=== PATIENT | female | born 1985 | race Caucasian/White ===

== ENCOUNTER 2022-11-27 11:10 | Emergency (ER) | payer MEDICAID, SELFPAY ==
[2022-11-27 11:13] VITALS: BP 126/76; PULSE 102; RESP 18; TEMP 37; O2SAT 99; BMI 29.3
--- NOTE | 2022-11-27 11:38 | ED_ITS ---
HPI - Abdominal Pain General Chief Complaint: Abdominal Pain Stated Complaint: ABDOMINAL PAIN Time Seen by Provider: 11/27/22 11:31 Source: patient Mode of arrival: walk-in Limitations: no limitations History of Present Illness HPI narrative: 37-year-old female presents for abdominal pain and vaginal bleeding. She states she had a tubal ligation ten years ago. Three days ago she started having her period which was four days early and it's been heavier than typical. She states over the last several months she's been having heavier periods and she was once told that she has uterine fibroids. Related Data Previous Rx's Medication Instructions Recorded acetaminophen 300 mg-codeine 30 mg 1 tab PO Q6H PRN pain #20 tabs 11/27/22 tablet ibuprofen 800 mg tablet 800 mg PO Q8H PRN pain #20 tabs 11/27/22 Allergies Allergy/AdvReac Type Severity Reaction Status Date / Time No Known Drug Allergies Allergy Verified 11/27/22 11:16 Review of Systems ROS Narrative A ten point review of systems is negative except as noted above. Exam Narrative Exam Narrative: Nurses note and vital signs reviewed and patient is not hypoxic. General: The patient appears well and in no apparent distress. Patient is resting comfortably on cart. Skin: Warm, dry, no pallor noted. There is no rash noted. Head: Normocephalic, atraumatic Eye: Normal conjunctiva, no drainage Ears, Nose, Mouth, and Throat: oral mucosa is moist. Nares patent. Cardiovascular: Regular Rate and Rhythm Respiratory: Patient is in no distress, no accessory muscle use, lungs are clear to auscultation, no wheezing, rales or rhonchi Back: non-tender GI: mild tenderness across her lower abdomen without distention Musculoskeletal: The patient has no evidence of calf tenderness, no pitting edema, symmetrical pulses noted bilaterally Neurological: A&O, normal speech Psychiatric: Cooperative Constitutional Vital Signs, click to edit/add: Last Vital Signs Temp 98.6 F 11/27/22 11:13 Pulse 102 H 11/27/22 11:13 Resp 18 11/27/22 11:13 BP 126/76 11/27/22 11:13 Pulse Ox 99 11/27/22 11:13 O2 Del Method Room Air 11/27/22 11:13 Course Vital Signs Vital signs: Vital Signs Temperature 98.6 F 11/27/22 11:13 Pulse Rate 102 H 11/27/22 11:13 Respiratory Rate 18 11/27/22 11:13 Blood Pressure 126/76 11/27/22 11:13 Pulse Oximetry 99 11/27/22 11:13 Oxygen Delivery Method Room Air 11/27/22 11:13 Temperature 98.6 F 11/27/22 11:13 Pulse Rate 102 H 11/27/22 11:13 Respiratory Rate 18 11/27/22 11:13 Blood Pressure 126/76 11/27/22 11:13 Pulse Oximetry 99 11/27/22 11:13 Oxygen Delivery Method Room Air 11/27/22 11:13 MDM - Abdominal Pain MDM Narrative Medical decision making narrative: blood work is nonspecific. She is not anemic or . She is being referred to [facility] for follow-up and was provided pain medication. She seems to be feeling improved. Treatment diagnosis and follow-up were discussed with the patient. Differential Diagnosis Differential diagnosis: Likely abdominal pain, endometriosis, gastroenteritis and other (uterine fibroids) Lab Data Attestation: I reviewed the patient's lab results. Labs: Lab Results 11/27/22 Range/Units 11:57 WBC 5.2 (4.0-11.0) 10^3/uL RBC 4.87 (4.20-5.40) 10^6/uL Hgb 14.4 (12.0-16.0) g/dL Hct 41.7 (36.0-48.0) % MCV 85.6 (81.0-99.0) fL MCH 29.6 (26.7-34.0) pg MCHC 34.5 (29.9-35.2) g/dL RDW 12.8 (11.0-15.0) % Plt Count 274 (150-450) 10^3/uL MPV 9.8 (9.5-13.5) fL Neut % (Auto) 68.7 (43.0-75.0) % Lymph % (Auto) 22.5 (20.5-60.0) % [place] % (Auto) 6.6 (1.7-12.0) % Eos % (Auto) 1.4 (0.9-7.0) % Baso % (Auto) 0.6 (0.2-2.0) % Neut # (Auto) 3.6 (1.4-6.5) 10^3/uL Lymph # (Auto) 1.2 (1.2-3.8) 10^3/uL [place] # (Auto) 0.3 (0.3-0.8) 10^3/uL Eos # (Auto) 0.1 (0.0-0.7) 10^3/uL Baso # (Auto) 0.0 (0.0-0.1) 10^3/uL Abs Immat Gran (auto) 0.01 (0.00-0.03) 10^3/uL Imm/Tot Granulo (auto) 0.2 (0.0-0.5) % Sodium 138 (136-145) mmol/L Potassium 3.5 (3.5-5.1) mmol/L Chloride 103 (98-107) mmol/L Carbon Dioxide 26.6 (21.0-32.0) mmol/L Anion Gap 11.9 BUN 8.0 (7.0-18.0) mg/dL Creatinine 0.79 (0.55-1.02) mg/dL Est GFR ( Amer) >60 (>=60) Est GFR (Non-Af Amer) >60 (>=60) BUN/Creatinine Ratio 10.1 Glucose 104 (74-106) mg/dL Calcium 8.5 (8.5-10.1) mg/dL Serum HCG, Qual Negative (NEGATIVE) Discharge Plan Discharge Chief Complaint: Abdominal Pain Clinical Impression: Dysfunctional uterine bleeding, Abdominal pain Patient Disposition: Home, Self-Care Time of Disposition Decision: 13:08 Condition: Good Mode of Transportation: Private Vehicle Prescriptions / Home Meds: New ibuprofen 800 mg tablet 800 mg PO Q8H PRN (Reason: pain) Qty: 20 0RF acetaminophen-codeine 300-30 mg tablet 1 tab PO Q6H PRN (Reason: pain) Qty: 20 0RF Instructions: Abdominal Pain (ED), Hysterectomy (DC), Myomectomy (DC), Uterine Artery Embolization for Fibroids (DC) Additional Instructions: F/u with Dr Tobar Stand Alone Forms: Portal Instructions Referrals: Physician,Non-Staff, MD [Primary Care Provider] - 1 week
[2022-11-27 12:02] LABS: Basophils Percent Auto 0.6 % (0.2-2.0); Eosinophils Absolute Auto 0.1 10^3/uL (0.0-0.7); Eosinophils Percent Auto 1.4 % (0.9-7.0); Hematocrit 41.7 % (36.0-48.0); Hemoglobin 14.4 g/dL (12.0-16.0); Immature Granulocytes Abs Auto 0.01 10^3/uL (0.00-0.03); Immature Granulocytes Pct Auto 0.2 % (0.0-0.5); Lymphocytes Absolute Auto 1.2 10^3/uL (1.2-3.8); Lymphocytes Percent Auto 22.5 % (20.5-60.0); Mean Corpuscular HGB Conc 34.5 g/dL (29.9-35.2); Mean Corpuscular Hemoglobin 29.6 pg (26.7-34.0); Mean Corpuscular Volume 85.6 fL (81.0-99.0); Mean Platelet Volume 9.8 fL (9.5-13.5); Monocytes Absolute Auto 0.3 10^3/uL (0.3-0.8); Monocytes Percent Auto 6.6 % (1.7-12.0); Neutrophils Absolute Auto 3.6 10^3/uL (1.4-6.5); Neutrophils Percent Auto 68.7 % (43.0-75.0); Platelet Count 274 10^3/uL (150-450); Red Blood Count 4.87 10^6/uL (4.20-5.40); Red Cell Distribution Width 12.8 % (11.0-15.0); White Blood Count 5.2 10^3/uL (4.0-11.0)
[2022-11-27 12:17] LABS: Anion Gap 11.9; BUN Creatinine Ratio 10.1; Calcium 8.5 mg/dL (8.5-10.1); Carbon Dioxide 26.6 mmol/L (21.0-32.0); Chloride 103 mmol/L (98-107); Estimated GFR (African America >60 (>=60); Estimated GFR (Non-African Ame >60 (>=60); Glucose 104 mg/dL (74-106); Potassium 3.5 mmol/L (3.5-5.1); Sodium 138 mmol/L (136-145)
[2022-11-27] MEDS: KETOROLAC TROMETHAMINE 30 MG/ML VIAL IVP (12:27)
[2022-11-27] MEDS: 0.9 % SODIUM CHLORIDE 1,000 ML 1000 ML IV (12:27)
[2022-11-27 13:04] LABS: HCG Qualitative NEGATIVE (NEGATIVE)
[2022-11-27 13:35] VITALS: BP 122/76; PULSE 89; RESP 16; O2SAT 98
== END 2022-11-27 13:40 | disposition home or self-care (01) ==
PROVIDERS: Emergency Provider Emergency Medicine
DX: R10.9 Unspecified abdominal pain (principal); N93.8 Other specified abnormal uterine and vaginal bleeding
CPT/HCPCS: 36415; 80048; 84703; 85025; 96374; 99284

== ENCOUNTER 2023-05-18 03:17 | Emergency (ER) | payer OTHER, SELFPAY ==
[2023-05-18 03:19] VITALS: BP 112/71; PULSE 76; RESP 20; TEMP 36.6; O2SAT 100; BMI 28.8
--- NOTE | 2023-05-18 03:38 | ED_ITS ---
HPI - Abdominal Pain General Chief Complaint: Abdominal Pain Stated Complaint: ABD PAIN Time Seen by Provider: 05/18/23 03:23 Source: patient Mode of arrival: walk-in History of Present Illness HPI narrative: presents complaining of diarrhea. Describes crampy pain when she has diarrhea. Ongoing for past 4 hours. No vomiting. Denies passing blood Related Data Previous Rx's Medication Instructions Recorded acetaminophen 300 mg-codeine 30 mg 1 tab PO Q6H PRN pain #20 tabs 11/27/22 tablet ibuprofen 800 mg tablet 800 mg PO Q8H PRN pain #20 tabs 11/27/22 Allergies Allergy/AdvReac Type Severity Reaction Status Date / Time No Known Drug Allergies Allergy Verified 11/27/22 11:16 Review of Systems ROS Status of ROS 10 or more systems reviewed and unremark able except as noted in history and below Exam Constitutional Vital Signs, click to edit/add: Last Vital Signs Temp 97.8 F 05/18/23 03:19 Pulse 76 05/18/23 03:19 Resp 20 05/18/23 03:19 BP 112/71 05/18/23 03:19 Pulse Ox 100 05/18/23 03:19 O2 Del Method Room Air 05/18/23 03:19 Common normals: no apparent distress, average body habitus, oriented x3, no limitations, healthy appearing, alert and well nourished Eye Common normals: PERRL, EOMs intact bilaterally and conjunctivae normal Respiratory Common normals: normal respiratory effort, no retractions, no use of accessory muscles and clear to auscultation bilaterally Cardio Common normals: regular rate, regular rhythm, S1 normal heart sound and S2 normal heart sound GI Common normals: Normal to inspection, nondistended, normoactive bowel sounds present, soft to palpation and non-tender Extremity Common normals: normal to inspection and full ROM Neuro Common normals: oriented x3, CN's II-XII intact bilaterally, moves all extremities and no focal motor deficits Psych Appearance: grossly normal Course Vital Signs Vital signs: Vital Signs Temperature 97.8 F 05/18/23 03:19 Pulse Rate 76 05/18/23 03:19 Respiratory Rate 20 05/18/23 03:19 Blood Pressure 112/71 05/18/23 03:19 Pulse Oximetry 100 05/18/23 03:19 Oxygen Delivery Method Room Air 05/18/23 03:19 Temperature 97.8 F 05/18/23 03:19 Pulse Rate 76 05/18/23 03:19 Respiratory Rate 20 05/18/23 03:19 Blood Pressure 112/71 05/18/23 03:19 Pulse Oximetry 100 05/18/23 03:19 Oxygen Delivery Method Room Air 05/18/23 03:19 MDM - Abdominal Pain MDM Narrative Medical decision making narrative: patient presents with rectal pain and diarrhea. CT with infectious/inflammatory proctocolitis. Patient treated with cipro, IV hydration and bentyl before discharge. C. diff neg. Lab Data Labs: Lab Results 05/18/23 05/18/23 Range/Units 03:30 03:50 WBC 7.4 (4.0-11.0) 10^3/uL RBC 4.76 (4.20-5.40) 10^6/uL Hgb 14.2 (12.0-16.0) g/dL Hct 41.8 (36.0-48.0) % MCV 87.8 (81.0-99.0) fL MCH 29.8 (26.7-34.0) pg MCHC 34.0 (29.9-35.2) g/dL RDW 12.9 (11.0-15.0) % Plt Count 252 (150-450) 10^3/uL MPV 10.2 (9.5-13.5) fL Neut % (Auto) 63.1 (43.0-75.0) % Lymph % (Auto) 27.9 (20.5-60.0) % [place] % (Auto) 6.2 (1.7-12.0) % Eos % (Auto) 2.2 (0.9-7.0) % Baso % (Auto) 0.3 (0.2-2.0) % Neut # (Auto) 4.7 (1.4-6.5) 10^3/uL Lymph # (Auto) 2.1 (1.2-3.8) 10^3/uL [place] # (Auto) 0.5 (0.3-0.8) 10^3/uL Eos # (Auto) 0.2 (0.0-0.7) 10^3/uL Baso # (Auto) 0.0 (0.0-0.1) 10^3/uL Abs Immat Gran (auto) 0.02 (0.00-0.03) 10^3/uL Imm/Tot Granulo (auto) 0.3 (0.0-0.5) % Sodium 140 (136-145) mmol/L Potassium 3.5 (3.5-5.1) mmol/L Chloride 106 (98-107) mmol/L Carbon Dioxide 24.1 (21.0-32.0) mmol/L Anion Gap 13.4 BUN 13.0 (7.0-18.0) mg/dL Creatinine 0.82 (0.55-1.02) mg/dL Est GFR ( Amer) >60 (>=60) Est GFR (Non-Af Amer) >60 (>=60) BUN/Creatinine Ratio 15.9 Glucose 93 (74-106) mg/dL Calcium 8.4 L (8.5-10.1) mg/dL Stl C. cayetanensis PCR Not detected (NOT DETECTE) Stool Rotavirus (PCR) Not detected (NOT DETECTE) Stool Adenovirus (PCR) Not detected (NOT DETECTE) Stool Astrovirus (PCR) Not detected (NOT DETECTE) Stool Campylobacter PCR Not detected (NOT DETECTE) Stool Cryptosporidium PCR Not detected (NOT DETECTE) St Sh/Enteroin Ecoli PCR Not detected (NOT DETECTE) Stl Enterotoxigenic E PCR Not detected (NOT DETECTE) Stool EPEC (PCR) Not detected (NOT DETECTE) Stl E. histolytica PCR Not detected (NOT DETECTE) Stool Giardia Lamblia PCR Not detected (NOT DETECTE) Stl P. shigelloides PCR Not detected (NOT DETECTE) Stool Salmonella PCR Not detected (NOT DETECTE) Stool Sapovirus (PCR) Not detected (NOT DETECTE) Stl Shiga-like Tx 1 PCR Not detected (NOT DETECTE) St Y.enterocolitica PCR Not detected (NOT DETECTE) Stl Vibrio cholerae PCR Not detected (NOT DETECTE) Stl Enteroaggr Ecoli PCR Not detected (NOT DETECTE) Stl Norovirus GI/GII PCR Not detected (NOT DETECTE) C. difficile Toxin A&B Not detected (NOT DETECTE) Vibrio Culture Not detected (NOT DETECTE) Imaging Data Abdominal x-ray: Radiologist's impression: ITS Impressions Abdomen/Pelvis CT 05/18/23 03:40 IMPRESSION: 1. Infectious/inflammatory proctocolitis involving the distal descending and rectosigmoid colon. No additional acute findings in the abdomen or pelvis. 2. Cholecystectomy. 3. Bilateral pelvic varices, left greater than right, nonspecific. These can be a normal variant, or be indicative of pelvic venous insufficiency/pelvic congestion syndrome. Electronically authenticated by: SHE MACIAS Date: 05/18/2023 04:36 Discharge Plan Discharge Chief Complaint: Abdominal Pain Clinical Impression: Proctocolitis Patient Disposition: Home, Self-Care Time of Disposition Decision: 06:55 Condition: Good Mode of Transportation: Private Vehicle Prescriptions / Home Meds: No Action ibuprofen 800 mg tablet 800 mg PO Q8H PRN (Reason: pain) Qty: 20 0RF acetaminophen-codeine 300-30 mg tablet 1 tab PO Q6H PRN (Reason: pain) Qty: 20 0RF Instructions: Acute Diarrhea (ED) Stand Alone Forms: Portal Instructions Referrals: Physician,Non-Staff, MD [Primary Care Provider] - 1 week Discharge Date/Time: 05/18/23 06:58
--- NOTE | 2023-05-18 03:40 | CT_ITS ---
The [address] [address] Patient Name: ROLY CHAO MRN: [id number] date: 1985 Sex: F Assigned Patient Location: ER Current Patient Location: ER Accession/Order Number: [id number] Exam Date: 05/18/2023 04:13 Report Date: 05/18/2023 04:36 At the request of: MATTI LLOYD Procedure: CT abdomen pelvis w con EXAM: CT abdomen pelvis w con HISTORY: abdominal pain . History of pancreatitis and POTS COMPARISON: CT abdomen pelvis, 04/18/2022. TECHNIQUE: IV contrast enhanced CT imaging of the abdomen and pelvis was performed using 100 mL of Omnipaque 300 intravenous contrast. Sagittal and coronal reconstructions are provided. FINDINGS: CT ABDOMEN: The lung bases are clear. The heart is unremarkable. Cholecystectomy clips are unchanged with mild postoperative extrahepatic biliary ductal dilatation. The liver, pancreas, spleen, adrenal glands, kidneys, aorta, and IVC are unremarkable. The nonenhanced stomach and small bowel appear within normal limits. CT PELVIS: There is wall thickening in the distal descending and rectosigmoid colon with mucosal enhancement favoring infectious/inflammatory colitis. There is no bowel obstruction. The remainder of the colon is otherwise unremarkable. The appendix is not seen. The pelvic small bowel bowel loops, decompressed urinary bladder and uterus are unremarkable. Adnexal varices are noted, left greater than right. No free fluid, loculated fluid, free air or soft tissue gas is seen in the abdomen or pelvis. No acute osseous abnormality or suspicious bony lesion is seen. CT/CT abdomen pelvis w con IMPRESSION: 1. Infectious/inflammatory proctocolitis involving the distal descending and rectosigmoid colon. No additional acute findings in the abdomen or pelvis. 2. Cholecystectomy. 3. Bilateral pelvic varices, left greater than right, nonspecific. These can be a normal variant, or be indicative of pelvic venous insufficiency/pelvic congestion syndrome. Electronically authenticated by: SHE MACIAS Date: 05/18/2023 04:36
[2023-05-18 03:51] LABS: Basophils Percent Auto 0.3 % (0.2-2.0); Eosinophils Absolute Auto 0.2 10^3/uL (0.0-0.7); Eosinophils Percent Auto 2.2 % (0.9-7.0); Hematocrit 41.8 % (36.0-48.0); Hemoglobin 14.2 g/dL (12.0-16.0); Immature Granulocytes Abs Auto 0.02 10^3/uL (0.00-0.03); Immature Granulocytes Pct Auto 0.3 % (0.0-0.5); Lymphocytes Absolute Auto 2.1 10^3/uL (1.2-3.8); Lymphocytes Percent Auto 27.9 % (20.5-60.0); Mean Corpuscular Hemoglobin 29.8 pg (26.7-34.0); Mean Corpuscular Volume 87.8 fL (81.0-99.0); Mean Platelet Volume 10.2 fL (9.5-13.5); Monocytes Absolute Auto 0.5 10^3/uL (0.3-0.8); Monocytes Percent Auto 6.2 % (1.7-12.0); Neutrophils Absolute Auto 4.7 10^3/uL (1.4-6.5); Neutrophils Percent Auto 63.1 % (43.0-75.0); Platelet Count 252 10^3/uL (150-450); Red Blood Count 4.76 10^6/uL (4.20-5.40); Red Cell Distribution Width 12.9 % (11.0-15.0); White Blood Count 7.4 10^3/uL (4.0-11.0)
[2023-05-18 03:55] LABS: Anion Gap 13.4; BUN Creatinine Ratio 15.9; Calcium 8.4 mg/dL (8.5-10.1); Carbon Dioxide 24.1 mmol/L (21.0-32.0); Chloride 106 mmol/L (98-107); Estimated GFR (African America >60 (>=60); Estimated GFR (Non-African Ame >60 (>=60); Glucose 93 mg/dL (74-106); Potassium 3.5 mmol/L (3.5-5.1); Sodium 140 mmol/L (136-145)
[2023-05-18] MEDS: DICYCLOMINE HCL 20 MG/2 ML VIAL IM (04:29)
[2023-05-18] MEDS: 0.9 % SODIUM CHLORIDE 1,000 ML 999 ML IV (04:29)
[2023-05-18 05:25] LABS: Adenovirus F 40/41 NOT DETECTED (NOT DETECTE); Astrovirus NOT DETECTED (NOT DETECTE); Campylobacter NOT DETECTED (NOT DETECTE); Cryptosporidium NOT DETECTED (NOT DETECTE); Cyclospora cayetanensis NOT DETECTED (NOT DETECTE); Entamoeba histolytica NOT DETECTED (NOT DETECTE); Enteroaggregative E.coli NOT DETECTED (NOT DETECTE); Enteropathogenic E.coli NOT DETECTED (NOT DETECTE); Enterotoxigenic E. coli NOT DETECTED (NOT DETECTE); Giardia lamblia NOT DETECTED (NOT DETECTE); Norovirus GI/GII NOT DETECTED (NOT DETECTE); Plesiomonas shigelloides NOT DETECTED (NOT DETECTE); Rotavirus A NOT DETECTED (NOT DETECTE); Salmonella NOT DETECTED (NOT DETECTE); Sapovirus NOT DETECTED (NOT DETECTE); Shiga-like toxin-producing E.C NOT DETECTED (NOT DETECTE); Shigella/Enteroinvasive E.coli NOT DETECTED (NOT DETECTE); Vibrio NOT DETECTED (NOT DETECTE); Vibrio cholerae NOT DETECTED (NOT DETECTE); Yersinia enterocolitica NOT DETECTED (NOT DETECTE)
[2023-05-18] MEDS: CIPROFLOXACIN IN 5 % DEXTROSE 400 MG/200 ML PIGGYBACK 200 MG IV (05:55)
== END 2023-05-18 06:58 | disposition home or self-care (01) ==
PROVIDERS: Emergency Provider Internal Medicine
DX: K51.30 Ulcerative (chronic) rectosigmoiditis without complications (principal)
CPT/HCPCS: 36415; 74177; 80048; 85025; 87045; 87046; 87427; 87493; 87507; 96361; 96365; 96372; 99284; J0500; J0744; Q9967

== ENCOUNTER 2023-06-22 23:14 | Emergency (ER) | payer OTHER, SELFPAY ==
[2023-06-22 23:17] VITALS: BP 116/73; PULSE 85; RESP 18; TEMP 37.1; O2SAT 100; BMI 28.8
--- OUTSIDE RECORDS SUMMARY | 2023-06-22 23:21 | XMS_ITS | CCD ---
Author Name Unknown Address [address] [place] [address] Organization [facility] Care Team Providers Care Appian Developer Name Role Phone DANNI BERRY Attending Unavailable MARCELINA CLEMENTE Attending Unavailable ANG MCADAMS Attending Unavailable MIHAELA HENDRICKS Attending Unavailable MEJIA CORTEZ Attending Unavailable Unavailable Primary Care Provider UnavailKae Kowalski Unavailable REQUEST, NONE LISTED Primary Care Unavaila ble MATTI LLOYD Admitting Unavailable MATTI LLOYD Consulting Unavailable MATTI LLOYD Attending Unavailable REQUEST, NONE LISTED Primary Care Unavaila ble WAYNE TURNER Consulting Unavailable PAY ., DR CARSON Admitting Unavailable PAY ., DR CARSON Attending Unavailable REQUEST, NONE LISTED Primary Care Unavaila ble CARINA TONY Consulting Unavailable JEFFRY ANDRE Admitting Unavailable JEFFRY ANDRE Attending Unavailable WAYNE TURNER Consulting Unavailable REQUEST, NONE LISTED Primary Care Unavaila ble MARKER ., DR MARKS Admitting Unavailable MARKER ., DR MARKS Consulting Unavailable MARKER ., DR MARKS Attending Unavailable JOSELINE DEL RIO Consulting Unavailable REQUEST, NONE LISTED Primary Care Unavaila ble BRETTCHNY ., RICKI DWYER Consulting Unavailcecilia PORTER ., DR LEDESMA Admitting Unavailable CHARLOTTE ., DR LEDESMA Attending Unavailable HEATHER MONTEZ Consulting Unavailable REQUEST, NONE LISTED Primary Care Unavaila ble JEFFRY ANDRE Admitting Unavailable JEFFRY ANDRE Consulting Unavailable JEFFRY ANDRE Attending Unavailable JOSELINE AZAR Consulting Unavailable BeckyMatthiasen Unavailable SEEMA MENCHACA Referring Unavailable SEEMA MENCHACA Attending Unavailable SEEMA MENCHACA Admitting Unavailable HODA BANEGAS Attending Unavailable Medications Current Medications Medication Drug Class(es) Dates Sig (Normalized) Sig (Original) benzonatate 100 mg oral capsule (1 source) Non-narcotic Antitussive Start: 06-03-2019 take 1-2 capsules by mouth three times daily as needed for cough benzonatate (TESSALON) 100 MG capsule Take 1-2 capsules by mouth 3 times daily as needed for Cough 20 capsule 0 06/03/2019 Active Start: 06-03-2019 take 1-2 capsules by mouth three times daily as needed for cough benzonatate (TESSALON) 100 MG capsule Take 1-2 capsules by mouth 3 times daily as needed for Cough 20 capsule 0 06/03/2019 Active Brompheniramine / Pseudoephedrine (1 source) alpha-Adrenergic Agonist Start: 07-10-2022 take 10 mL by mouth every four hours as needed Bromfed DM 30-2-10 MG/5ML 10 ml as needed Orally every 4 hrs Jun, Active ibuprofen 600 mg oral tablet (1 source) Nonsteroidal Anti-inflammatory Drug Start: 05-02-2019 take 1 tablet by mouth every six hours as needed for pain ibuprofen (IBU) 600 MG tablet Take 1 tablet by mouth every 6 hours as needed for Pain 60 tablet 0 05/02/2019 Active methylPREDNISolone 4 mg oral tablet (1 source) Corticosteroid Start: 07-10-2022 methylPREDNISolone 4 MG as directed Orally Jun, Active ondansetron 4 mg disintegrating oral tablet (1 source) Serotonin-3 Receptor Antagonist Start: 11-10-2022 take 1 tablet by mouth every eight hours as needed for nausea Ondansetron 4 MG 1 tablet on the tongue and allow to dissolve Orally every 8 hours prn nausea for 5 days Oct, Active Completed/Discontinued Medications Medication Drug Class(es) Dates Sig (Normalized) Sig (Original) fluticasone propionate 0.05 mg/actuat metered dose nasal spray (2 sources) Corticosteroid Start: 07-10-2022 take 1 spray(s) nasal route once daily Flonase Allergy Relief 50 MCG/ACT 1 spray in each nostril Nasally Once a day for 30 day(s) Jun, Not-Taking Ketorolac Tromethamin (1 source) Start: 11-10-2022 Ketorolac Tromethamin Oct, 60 mg Problems Active Problems Problem Classification Problem Date Documented Da te Episodic/Chronic Abdominal hernia (1 source) Umbilical hernia without obstruction or gangrene; Translations: [Umbilical hernia without obstruction or gangrene] Onset: 01-05-2023 Episodic Cardiac dysrhythmias (1 source) Other specified cardiac arrhythmias; Translations: [OTHER SPECIFIED CARDIAC ARRHYTHMIAS] Onset: 10-21-2021 Chronic Conditions associated with dizziness or vertigo (3 sources) Dizziness and giddiness; Translations: [DIZZINESS AND GIDDINESS] Onset: 08-25-2022 Episodic Headache; including migraine (2 sources) Migraine without aura, not refractory ; Translations: [Migraine without aura, not intractable, without status migrainosus] Chronic Other nervous system disorders (1 source) Polyneuropathy, unspecified; Translations: [POLYNEUROPATHY UNSPECIFIED] Onset: 03-03-2022 Chronic Other nervous system disorders (1 source) Other chronic pain; Translations: [OTHER CHRONIC PAIN] Onset: 10-21-2021 Chronic Other upper respiratory disease (1 source) Nasal congestion Episodic Other upper respiratory infections (2 sources) Viral upper respiratory tract infection; Translations: [Acute upper respiratory infection, unspecified] Episodic Residual codes; unclassified (1 source) Acquired absence of other specified parts of digestive tract; Translations: [ACQ ABSENCE OTH PART DIGESTV TRACT] Onset: 08-27-2022 Episodic Substance-related disorders (1 source) Nicotine dependence, cigarettes, uncomplicated; Translations: [NICOTINE DEPEND CIGARETTES UNCOMP] Onset: 08-27-2022 Chronic Syncope (1 source) Syncope and collapse; Translations: [SYNCOPE AND COLLAPSE] Onset: 08-27-2022 Episodic Unclassified (1 source) POSTURAL ORTHOSTATIC TACHY SYN POTS; Translations: [POSTURAL ORTHOSTATIC TACHY SYN POTS] Onset: 08-27-2022 Past or Other Problems Problem Classification Problem Date Documented Date Episodic/Chronic Abdominal pain (4 sources) Epigastric pain; Translations: [Unspecified abdominal pain] Onset: 04-18-2022 Episodic E Codes: Fall (1 source) Unspecified fall, initial encounter; Translations: [UNSPECIFIED FALL INITIAL ENCOUNTER] Onset: 02-12-2022 Episodic Nausea and vomiting (1 source) Nausea; Translations: [NAUSEA] Onset: 04-23-2022 Episodic Other connective tissue disease (4 sources) Pain in left finger(s); Translations: [PAIN IN LEFT FINGERS] Onset: 02-28-2022 Episodic Other connective tissue disease (1 source) Pain in left hand; Translations: [PAIN IN LEFT HAND] Onset: 02-12-2022 Episodic Spondylosis; intervertebral disc disorders; other back problems (4 sources) Sacrococcygeal disorders, not elsewhere classified; Translations: [SACROCOCCYGEAL DISORDERS NEC] Onset: 10-18-2021 Episodic Sprains and strains (2 sources) Unspecified sprain of left middle finger, initial encounter; Translations: [Unspecified sprain of right index finger, initial encounter] Onset: 02-12-2022 Episodic Results Test Name Value Interpretation Reference Range Facility Basic Metabolic Profon 01-09 Anion gap [Moles/Vol] 10 mmol/L Normal 7-16 [facility] Comment on above: Performed By: #### B ELVIRA CBCWD #### [facility] [address] [place], [place] [address] Patient Case Manager: Devonte Olmedo MD Calcium [Mass/Vol] 8.8 mg/dL Normal 8.6-10.2 [facility] Comment on above: Performed By: #### B ELVIRA, CBCWD #### [facility] [address] [place], [place] [address] Patient Case Manager: Devonte Olmedo MD Chloride [Moles/Vol] 104 mmol/L Normal 98-107 [facility] Comment on above: Performed By: #### B ELVIRA, CBCWD #### [facility] [address], [place] [id number] Patient Case Manager: Devonte Olmedo MD CO2 [Moles/Vol] 25 mmol/L Normal 22-29 [facility] Comment on above: Performed By: #### Abhinav FELIX, CBCWD #### [facility] [address], [place] [id number] Patient Case Manager: Devonte Olmedo MD Creatinine [Mass/Vol] 0.7 mg/dL Normal 0.50-1.00 [facility] Comment on above: Performed By: #### B ELVIRA, CBCWD #### [address] [address] Patient Case Manager: Devonte Olmedo MD GFR/1.73 sq M.predicted among non-blacks MDRD (S/P/Bld) [Vol rate/Area] mL/min/{1.73_m2} Normal >60 [facility] Comment on above: Result Comment: These results are not intended for use in patients <18 years of age. eGFR results are calculated without a race factor using the 2020 CKD-EPI equation. Careful clinical correlation is recommended, particularly when comparing to results calculated using previous equations. The CKD-EPI equation is less accurate in patients with extremes of muscle mass, extra-renal metabolism of creatine, excessive creatine ingestion, or following therapy that affects renal tubular secretion. Performed By: #### Abhinav FELIX, CBCWD #### [address] [address] Patient Case Manager: Devonte Olmedo MD Glucose [Mass/Vol] 81 mg/dL Normal 74-99 [facility] Comment on above: Performed By: #### B ELVIRA CBCWD #### [address] [id number] Patient Case Manager: Devonte Olmedo MD Potassium [Moles/Vol] 4.4 mmol/L Normal 3.5-5.0 [facility] Comment on above: Performed By: #### Abhinav FELIX, CBCWD #### [address] [address] Patient Case Manager: Devonte Olmedo MD Sodium [Moles/Vol] 139 mmol/L Normal 132-146 [facility] Comment on above: Performed By: #### B ELVIRA, CBCWD #### [address] [address] Patient Case Manager: Devonte Olmedo MD Urea nitrogen [Mass/Vol] 15 mg/dL Normal 6-20 [facility] Comment on above: Performed By: #### B ELVIRA, CBCWD #### [address] [address] Patient Case Manager: Devonte Olmedo MD CBC with Diffon 01-09-2023 Abs. Basophil 0.05 k/uL Normal 0.00-0.20 [facility] Comment on above: Performed By: #### B ELVIRA, CBCWD #### [address] [address] Patient Case Manager: Devonte Olmedo MD Abs.Imm.Granulocy te <0.03 Normal 0.00-0.58 [facility] Comment on above: Performed By: #### B ELVIRA, CBCWD #### [address] [address] ( Patient Case Manager: Devonte Olmedo MD Abs.Neutrophil (Seg) 3.07 k/uL Normal 1.80-7.30 [facility] Comment on above: Performed By: #### B ELVIRA, CBCWD #### [address] [address] Patient Case Manager: Devonte Olmedo MD Basophils/100 WBC (Bld) 1 % Normal 0.0-2.0 [facility] Comment on above: Performed By: #### B ELVIRA, CBCWD #### [address] [address] Patient Case Manager: Devonte Olmedo MD Eosinophils (Bld) [#/Vol] 0.21 10*3/uL Normal 0.05-0.50 [facility] Comment on above: Performed By: #### B ELVIRA, CBCWD #### [address] [address] Patient Case Manager: Devonte Olmedo MD Eosinophils/100 WBC (Bld) 4 % Normal 0-6 [facility] Comment on above: Performed By: #### B MP, CBCWD #### [address] [address] Patient Case Manager: Devonte Olmedo MD Erythrocyte distribution width (RBC) [Ratio] 11.0 % Low 11.5-15.0 [facility] Comment on above: Performed By: #### B MP, CBCWD #### [address] [address] ( Patient Case Manager: Devonte Olmedo MD Hematocrit (Bld) [Volume fraction] 39.5 % Normal 34.0-48.0 [facility] Comment on above: Performed By: #### B ELVIRA, CBCWD #### [address] [address] ( Patient Case Manager: Devonte Olmedo MD Hemoglobin (Bld) [Mass/Vol] 13.3 g/dL Normal 11.5-15.5 [facility] Comment on above: Performed By: #### B MP, CBCWD #### [address] [address] Patient Case Manager: Devonte Olmedo MD Immature granulocytes/100 WBC (Bld) 0 % Normal 0.0-5.0 [facility] Comment on above: Performed By: #### B ELVIRA, CBCWD #### [address] [address] ( Patient Case Manager: Devonte Olmedo MD Lymphocytes (Bld) [#/Vol] 1.42 10*3/uL Low 1.50-4.00 [facility] Comment on above: Performed By: #### B MP, CBCWD #### [address] [address] ( Patient Case Manager: Devonte Olmedo MD Lymphocytes/100 WBC (Bld) 27 % Normal 20.0-42.0 [facility] Comment on above: Performed By: #### B MP, CBCWD #### [address] [address] ( Patient Case Manager: Devonte Olmedo MD MCH (RBC) [Entitic mass] 30.7 pg Normal 26.0-35.0 [facility] Comment on above: Performed By: #### B MP, CBCWD #### [address] [address] ( Patient Case Manager: Devonte Olmedo MD MCHC (RBC) [Mass/Vol] 33.7 g/dL Normal 32.0-34.5 [facility] Comment on above: Performed By: #### B MP, CBCWD #### [address] [address] ( Patient Case Manager: Devonte Olmedo MD MCV (RBC) [Entitic vol] 91.2 fL Normal 80.0-99.9 [facility] Comment on above: Performed By: #### B MP, CBCWD #### [address] [address] ( Patient Case Manager: Devonte Olmedo MD Monocytes (Bld) [#/Vol] 0.42 10*3/uL Normal 0.10-0.95 [facility] Comment on above: Performed By: #### B MP, CBCWD #### [address] [address] ( Patient Case Manager: Devonte Olmedo MD Monocytes/100 WBC (Bld) 8 % Normal 2.0-12.0 [facility] Comment on above: Performed By: #### B MP, CBCWD #### [address] [address] Patient Case Manager: Devonte Olmedo MD Neutrophil (Seg) 59 % Normal 43.0-80.0 [facility] Comment on above: Performed By: #### B MP, CBCWD #### [address] [address] Patient Case Manager: Devonte Olmedo MD Platelet mean volume (Bld) [Entitic vol] 10.2 fL Normal 7.0-12.0 [facility] Comment on above: Performed By: #### B MP, CBCWD #### [address] [address] Patient Case Manager: Devonte Olmedo MD Platelets (Bld) [#/Vol] 202 10*3/uL Normal 130-450 [facility] Comment on above: Performed By: #### B MP, CBCWD #### [facility] [address] [place] [address] Patient Case Manager: Devonte Olmedo MD RBC (Bld) [#/Vol] 4.33 10*6/uL Normal 3.50-5.50 [facility] Comment on above: Performed By: #### B ELVIRA, CBCWD #### [address] [address] Patient Case Manager: Devonte Olmedo MD WBC (Bld) [#/Vol] 5.2 10*3/uL Normal 4.5-11.5 [facility] Comment on above: Performed By: #### B ELVIRA, CBCWD #### [address] [address] Patient Case Manager: Devonte Olmedo MD Surgical Pathology Reporton 01-09-2023 Surgical Pathology Report (NOTE) Path Number: [id number] -- Diagnosis -- Hernia contents, umbilical hernia, excision: Partially mesothelial lined membranous fibroadipose tissue compatible with hernia sac and attached lobulated mature adipose tissue. Devonte Shah MD Electronically Signed Out rs/01/13/2023 Clinical Information Procedure: Hernia (umbilical) repair, laparoscopic; possible open. Pre-Operative Diagnosis Umbilical hernia. Post Operative Diagnosis Umbilical hernia. Source of Specimen A: HERNIA CONTENTS Gross Description The specimen is received in formalin, designated hernia contents , and consists of multiple fragments of sabillon-yellow fibroadipose tissue admixed with sabillon-pink, thin-walled tissue grossly consistent with hernia sac. The specimen is sectioned to reveal partially edematous, but otherwise grossly unremarkable cut surfaces. No hemorrhage or necrosis is grossly identified. The specimen is representatively submitted in cassette A1. /ps:01/09/2023 Microscopic Description Was performed. Processing Lab: [facility], [address] [place] [id number] Interpretation Performed at [address] [address] SURGICAL PATHOLOGY CONSULTATION Patient Name: ROLY CHAO [facility] Rec: [id number] [address] [address] Fax: Normal [facility] Comment on above: Performed By: #### P PPHES #### [facility] See report CARDIAC GREY ADMITon 023 CK [Catalytic activity/Vol] 50 U/L Normal 26-192 [facility] Comment on above: Performed By: #### C ELY, BMP ####[facility] [address] [address]DrMalena Barros CK.MB [Mass/Vol] ng/mL Normal <=3.60 [facility] Comment on above: Performed By: #### C ELY, BMP ####[facility] [address] [address]DrMalena Barros HSTROP 4.7 pg/mL Normal 4.0-51.3 [facility] Comment on above: Result Comment: CUT- OFF POINTS HAVE BEEN ESTABLISHED BASED ON THE FOURTH UNIVERSAL DEFINITIONS OF MYOCARDIAL INFARCTION. THE UPPER REFERENCE LIMIT (URL) OF TROPONIN, DEFINED THE 99TH PERCENTILE OF cTnI DISTRIBUTION IN A REFERENCE POPULATION, HAS BEEN CONFIRMED THE DECISION THRESHOLD FOR [place] DIAGNOSIS. Performed By: #### C MADM, BMP ####[facility] [address] [id number] Barros AVANI 43 ng/mL Normal 9-82 [facility] Comment on above: Performed By: #### C MADM, BMP ####[facility] [address] [place] [place] [id number] Barros CBC AUTO DIFFon 08-25-2022 BASO # 0.0 103/ul Normal 0.0-0.1 [facility] Comment on above: Performed By: #### C BC #### [facility] [address] [place] [address] Dr. Luis Barros Basophils/100 WBC (Bld) 0.5 % Normal 0.2-2.0 [facility] Comment on above: Performed By: #### C BC #### [facility] [address] [place] [address] Dr. Luis Barros EO # 0.1 103/ul Normal 0.0-0.7 [facility] Comment on above: Performed By: #### C BC #### [facility] [address] [place] [address] Dr. Luis Barros Eosinophils/100 WBC (Bld) 1.2 % Normal 0.9-7.0 [facility] Comment on above: Performed By: #### C BC #### [facility] [address] [place] [address] Dr. Luis Barros Erythrocyte distribution width (RBC) [Ratio] 13.2 % Normal 11.0-15.0 [facility] Comment on above: Performed By: #### C BC #### [facility] [address] [place] [address] Dr. Luis Barros Hematocrit (Bld) [Volume fraction] 43.0 % Normal 36.0-48.0 [facility] Comment on above: Performed By: #### C BC #### [facility] [address] [place] [address] Dr. Luis Barros Hemoglobin (Bld) [Mass/Vol] 14.2 g/dL Normal 12.0-16.0 [facility] Comment on above: Performed By: #### C BC #### [facility] [address] [place] [address] Dr. Luis Barros IG # 0.04 10e3/ul Critically high 0.00-0.03 [facility] Comment on above: Performed By: #### C BC #### [facility] [address] [place] [address] Dr. Luis Barros IG % 0.5 % Normal 0.0-0.5 [facility] Comment on above: Performed By: #### C BC #### [facility] [address] [place] [address] Dr. Luis Barros LYMPH # 1.7 103/ul Normal 1.2-3.8 [facility] Comment on above: Performed By: #### C BC #### [facility] [address] [place] [address] Dr. Luis Barros Lymphocytes/100 WBC (Bld) 20.2 % Critically low 20.5-60.0 [facility] Comment on above: Performed By: #### C BC #### [facility] [address] [place] [address] Dr. Luis Barros MANUAL DIFF REQ NO Normal [facility] Comment on above: Performed By: #### C BC #### [facility] [address] [place] [address] Dr. Luis Barros MCH (RBC) [Entitic mass] 29.5 pg Normal 26.7-34.0 [facility] Comment on above: Performed By: #### C BC #### [facility] [address] [place] [address] Dr. Luis Barros MCHC (RBC) [Mass/Vol] 33.0 g/dL Normal 29.9-35.2 [facility] Comment on above: Performed By: #### C BC #### [facility] [address] [place] [address] Dr. Luis Barros MCV (RBC) [Entitic vol] 89.4 fL Normal 81.0-99.0 [facility] Comment on above: Performed By: #### C BC #### [facility] [address] [place] [address] Dr. Luis Barros MONO # 0.4 103/ul Normal 0.3-0.8 [facility] Comment on above: Performed By: #### C BC #### [facility] [address] [place] [address] Dr. Luis Barros Monocytes/100 WBC (Bld) 5.1 % Normal 1.7-12.0 [facility] Comment on above: Performed By: #### C BC #### [facility] [address] [address] [address] Luis Barros NEUT # 6.0 103/ul Normal 1.4-6.5 [facility] Comment on above: Performed By: #### C BC #### [facility] [address] [address] [address] Luis Barros Neutrophils/100 WBC (Bld) 72.5 % Normal 43.0-75.0 [facility] Comment on above: Performed By: #### C BC #### [facility] [address] [address] [address] Luis Barros Platelet mean volume (Bld) [Entitic vol] 9.4 fL Critically low 9.5-13.5 [facility] Comment on above: Performed By: #### C BC #### [facility] [address] [address] [address] Luis Barros PLT 261 103/ul Normal 150-450 [facility] Comment on above: Performed By: #### C BC #### [facility] [address] [address] [address] Luis Barros RBC 4.81 106/ul Normal 4.20-5.40 [facility] Comment on above: Performed By: #### C BC #### [facility] [address] [address] [address] Luis Barros WBC 8.2 103/ul Normal 4.0-11.0 [facility] Comment on above: Performed By: #### C BC #### [facility] [address] [address] [address] Luis Barros PROF CHEM 8 (BAS METB)on Anion gap [Moles/Vol] 9.1 mmol/L Normal [facility] Comment on above: Performed By: #### C MADM, BMP ####[facility] [address] [address]Dr. Luis Barros Calcium [Mass/Vol] 8.5 mg/dL Normal 8.5-10.1 [facility] Comment on above: Performed By: #### C MADM, BMP ####[facility] [address] [place] [address]Dr. Luis Barros Chloride [Moles/Vol] 108 mmol/L Critically high 98-107 [facility] Comment on above: Performed By: #### C MADM, BMP ####[facility] [address] [address]Dr. Luis Barros CO2 [Moles/Vol] 31.4 mmol/L Normal 21.0-32.0 [facility] Comment on above: Performed By: #### C MADM, BMP ####[facility] [address] [place] [address]Dr. Luis Barros Creatinine [Mass/Vol] 0.91 mg/dL Normal 0.55-1.02 [facility] Comment on above: Performed By: #### C LUIZM, BMP ####[facility] [address] [place], [place] [address]Dr. Luis Barros EGFR-AF MOROCCAN >60 Normal >=60 [facility] Comment on above: Performed By: #### C ELY, BMP ####[facility] [address] [address]Dr. Luis Barros EGFR-NON AF MOROCCAN >60 Normal >=60 [facility] Comment on above: Performed By: #### C LUIZM, BMP ####[facility] [address] [place] [address]Dr. Luis Barros Glucose [Mass/Vol] 74 mg/dL Normal 74-106 [facility] Comment on above: Performed By: #### C MADM, BMP ####[facility] [address] [place] [id number]. Luis Barros Potassium [Moles/Vol] 3.5 mmol/L Normal 3.5-5.1 [facility] Comment on above: Performed By: #### C MADM, BMP ####[facility] [address] [place] [address]Dr. Luis Barros Sodium [Moles/Vol] 145 mmol/L Normal 136-145 [facility] Comment on above: Performed By: #### C LUIZM, BMP ####[facility] [address] [place] [id number]. Luis Barros Urea nitrogen [Mass/Vol] 20.0 mg/dL Critically high 7.0-18.0 [facility] Comment on above: Performed By: #### C LUIZM, BMP ####[facility] [address] [place] [id number]. Luis Barros Urea nitrogen/Creatini ne [Mass ratio] 22.0 mg/mg Normal [facility] Comment on above: Performed By: #### C ELY, BMP ####[facility] [address] [place] [id number] Barros COVID/FLU RT-PCRon 3 SARS-CoV-2 (COVID-19) RNA LES+probe Ql (Unsp spec) Negative [employer] Other COVID/FLU RT-PCR Negative Subject [employer] Other CBC AUTO DIFFon 04-18-2022 BASO # 0.0 103/ul Normal 0.0-0.1 [facility] Comment on above: Performed By: #### C BC #### [facility] [address] [place] [address] Dr. Luis Barros Basophils/100 WBC (Bld) 0.7 % Normal 0.2-2.0 [facility] Comment on above: Performed By: #### C BC #### [facility] [address] [place] [address] Dr. Luis Barros EO # 0.3 103/ul Normal 0.0-0.7 [facility] Comment on above: Performed By: #### C BC #### [facility] [address] [address] [address] Luis Barros Eosinophils/100 WBC (Bld) 4.2 % Normal 0.9-7.0 [facility] Comment on above: Performed By: #### C BC #### [facility] [address] [place] [address] Dr. Luis Barros Erythrocyte distribution width (RBC) [Ratio] 13.0 % Normal 11.0-15.0 [facility] Comment on above: Performed By: #### C BC #### [facility] [address] [place] [address] Dr. Luis Barros Hematocrit (Bld) [Volume fraction] 41.4 % Normal 36.0-48.0 [facility] Comment on above: Performed By: #### C BC #### [facility] [address] [place] [address] Dr. Luis Barros Hemoglobin (Bld) [Mass/Vol] 14.3 g/dL Normal 12.0-16.0 [facility] Comment on above: Performed By: #### C BC #### [facility] [address] [place] [address] Dr. Luis Barros IG # 0.02 10e3/ul Normal 0.00-0.03 [facility] Comment on above: Performed By: #### C BC #### [facility] [address] [place] [address] Dr. Luis Barros IG % 0.3 % Normal 0.0-0.5 [facility] Comment on above: Performed By: #### C BC #### [facility] [address] [place] [address] Dr. Luis Barros LYMPH # 2.4 103/ul Normal 1.2-3.8 [facility] Comment on above: Performed By: #### C BC #### [facility] [address] [place] [address] Dr. Luis Barros Lymphocytes/100 WBC (Bld) 39.1 % Normal 20.5-60.0 [facility] Comment on above: Performed By: #### C BC #### [facility] [address] [place] [address] Dr. Luis Barros MANUAL DIFF REQ NO Normal [facility] Comment on above: Performed By: #### C BC #### [facility] [address] [place] [address] Dr. Luis Barros MCH (RBC) [Entitic mass] 30.2 pg Normal 26.7-34.0 [facility] Comment on above: Performed By: #### C BC #### [facility] [address] [place] [address] Dr. Luis Barros MCHC (RBC) [Mass/Vol] 34.5 g/dL Normal 29.9-35.2 [facility] Comment on above: Performed By: #### C BC #### [facility] [address] [place] [address] Dr. Luis Barros MCV (RBC) [Entitic vol] 87.3 fL Normal 81.0-99.0 [facility] Comment on above: Performed By: #### C BC #### [facility] [address] [place] [address] Dr. Luis Barros MONO # 0.4 103/ul Normal 0.3-0.8 [facility] Comment on above: Performed By: #### C BC #### [facility] [address] [place] [address] Dr. Luis Barros Monocytes/100 WBC (Bld) 6.0 % Normal 1.7-12.0 [facility] Comment on above: Performed By: #### C BC #### [facility] [address] [place] [address] Dr. Luis Barros NEUT # 3.0 103/ul Normal 1.4-6.5 [facility] Comment on above: Performed By: #### C BC #### [facility] [address] [place] [address] Dr. Luis Barros Neutrophils/100 WBC (Bld) 49.7 % Normal 43.0-75.0 [facility] Comment on above: Performed By: #### C BC #### [facility] [address] [place] [address] Dr. Luis Barros Platelet mean volume (Bld) [Entitic vol] 9.6 fL Normal 9.5-13.5 [facility] Comment on above: Performed By: #### C BC #### [facility] [address] [place] [address] Dr. Luis Barros PLT 273 103/ul Normal 150-450 [facility] Comment on above: Performed By: #### C BC #### [facility] [address] [place], [place] [address] Dr. Luis Barros RBC 4.74 106/ul Normal 4.20-5.40 [facility] Comment on above: Performed By: #### C BC #### [facility] [address] [place], [place] [address] Dr. Luis Barros WBC 6.0 103/ul Normal 4.0-11.0 [facility] Comment on above: Performed By: #### C BC #### [facility] [address] [place], [place] [address] ABD/PELV W CONon 04-18-20 CT ABD/PELV W CON EXAM: CT ABD/PELV W CON REASON FOR EXAM: Female, 36 years, UNSPECIFIED ABDOMINAL PAIN. TECHNIQUE: Computed tomography of the abdomen and pelvis is performed in the axial projection from the lung bases to the pubic symphysis. Sagittal and coronal reconstructed images are performed. Dose reduction techniques were achieved by using automated exposure control and/or adjustment of mA and/or KVP according to patient size and/or use of iterative reconstruction technique. A total of 100 mL Omnipaque 300 IV contrast was given. Study was performed without oral contrast. COMPARISON: None. FINDINGS: Lung bases: The lung bases are clear. There is no pleural effusion. The visualized portions of the heart are unremarkable. Liver: There is pneumobilia in the left lobe of the liver. Gallbladder: The gallbladder has been removed. Spleen: The spleen is normal. Pancreas: The pancreas is normal. Adrenal glands: The adrenal glands are normal bilaterally. Right kidney: The kidney is normal in size. There is no renal calculus or hydronephrosis. Left kidney: The kidney is normal in size. There is no renal calculus or hydronephrosis. Stomach: The stomach is distended with fluid. Small bowel: The small bowel is normal. Large bowel: The colon is normal. Appendix: The appendix is not visualized. No right lower quadrant inflammatory changes are seen to suggest acute appendicitis. Aorta: The aorta is normal. IVC: The IVC is normal. Retroperitoneum: Normal retroperitoneum. Bladder: The bladder is normal. Pelvic organs: Normal uterus. Abdominal wall: There is a small fat-containing umbilical hernia. Osseous structures: Normal bony structures. IMPRESSION: No bowel obstruction or acute renal pathology. The appendix is not visualized. No right lower quadrant inflammatory changes. Normal appearance to the pancreas. Electronically authenticated by: CARINA TONY Date: 2022-04-18 21:36 Normal [facility] ER URINE PROFILEon 2 Bilirubin Ql (U) Negative Normal NEGATIVE [facility] Comment on above: Performed By: #### E RUR, PREGU, UMICRO #### [facility] [address] [address] [address] Luis Barros Clarity (U) CLEAR Normal CLEAR [facility] Comment on above: Performed By: #### E RUR, PREGU, UMICRO #### [facility] [address] [address] [address] Luis Barros Color (U) LT. YELLOW Normal YELLOW [facility] Comment on above: Performed By: #### Vera RUR, PREGU, UMICRO #### [facility] [address] [address] [address] Luis Barros ERUCY A micrscopic examination will be performed if indicated. Normal [facility] Comment on above: Performed By: #### Vera RUR, PREGU, UMICRO #### [facility] [address] [address] [address] Lusi Barros Glucose Ql (U) Negative Normal NEGATIVE [facility] Comment on above: Performed By: #### E RUR, PREGU, UMICRO #### [facility] [address] [address] [address] Luis Barros Hemoglobin Ql (U) TRACE-INTACT Abnormal NEGATIVE [facility] Comment on above: Performed By: #### E RUR, PREGU, UMICRO #### [facility] [address] [address] [address] Luis Barros Ketones Ql (U) Negative Normal NEGATIVE [facility] Comment on above: Performed By: #### E RUR, PREGU, UMICRO #### [facility] [address] [place] [address] Dr. Luis Barros LEUKOCYTES Negative Normal NEGATIVE [facility] Comment on above: Performed By: #### GUSTAVO ALONSO UMICRO #### [facility] [address] [address] [address] Luis Barros Nitrite Ql (U) Negative Normal NEGATIVE [facility] Comment on above: Performed By: #### GUSTAVO ALONSO UMICRO #### [facility] [address] [address] [address] Luis Barros pH (U) 7.5 [pH] Normal 5-9 [facility] Comment on above: Performed By: #### GUSTAVO ALONSO UMICRO #### [facility] [address] [place] [address] Dr. Luis Barros SPEC GRAVITY 1.010 Normal 1.005-<=1.025 [facility] Comment on above: Performed By: #### GUSTAVO ALONSO UMICRO #### [facility] [address] [place] [address] Dr. Luis Barros UA PROTEIN Negative Normal NEGATIVE/ TRACE [facility] Comment on above: Performed By: #### GUSTAVO ALONSO UMICRO #### [facility] [address] [place] [address] Dr. Luis Barros UR MICRO IND INDICATED Normal [facility] Comment on above: Performed By: #### GUSTAVO ALONSO UMICRO #### [facility] [address] [place] [address] Dr. Luis Barros Urobilinogen Qn (U) 0.2 {Marques'U}/dL Normal 0.2 - 1.0 [facility] Comment on above: Performed By: #### GUSTAVO ALONSO UMICRO #### [facility] [address] [place] [address] Dr. Luis Barros LIPASEon 04-18-2022 Lipase [Catalytic activity/Vol] 240.0 U/L Normal 73.0-393.0 [facility] Comment on above: Performed By: #### L IPA, CMP ####[facility] [address] [id number]. Luis Barros URon 04-18-2022 , QUAL Negative Normal NEGATIVE [facility] Comment on above: Performed By: #### E RUR, PREGU, UMICRO #### [facility] [address] [place], [place] [address] Dr. Luis Barros PROF 14(COMP METB)on 022 Albumin [Mass/Vol] 3.7 g/dL Normal 3.4-5.0 [facility] Comment on above: Performed By: #### L IPA, CMP ####[facility] [address] [address]Dr. Luis Barros Albumin/Globulin [Mass ratio] 1.2 {ratio} Normal [facility] Comment on above: Performed By: #### L IPA, CMP ####[facility] [address] [address]Dr. Luis Barros ALP [Catalytic activity/Vol] 53 U/L Normal 46-116 [facility] Comment on above: Performed By: #### L IPA, CMP ####[facility] [address] [address]Dr. Luis Barros ALT [Catalytic activity/Vol] 11 U/L Critically low 14-59 [facility] Comment on above: Performed By: #### L IPA, CMP ####[facility] [address] [address]Dr. Luis Barros Anion gap [Moles/Vol] 6.8 mmol/L Normal [facility] Comment on above: Performed By: #### L IPA, CMP ####[facility] [address] [address]Dr. Luis Barros AST [Catalytic activity/Vol] 14 U/L Critically low 15-37 [facility] Comment on above: Performed By: #### L IPA, CMP ####[facility] [address] [address]Dr. Luis Barros Bilirubin [Mass/Vol] 0.6 mg/dL Normal 0.2-1.0 [facility] Comment on above: Performed By: #### L IPA, CMP ####[facility] [address] [place], [place] [address]Dr. Luis Barros Calcium [Mass/Vol] 8.4 mg/dL Critically low 8.5-10.1 [facility] Comment on above: Performed By: #### L IPA, CMP ####[facility] [address] [place], [place] [address]Dr. Luis Barros Chloride [Moles/Vol] 104 mmol/L Normal 98-107 [facility] Comment on above: Performed By: #### L IPA, CMP ####[facility] [address] [place], [place] [address]Dr. Luis Barros CO2 [Moles/Vol] 30.7 mmol/L Normal 21.0-32.0 [facility] Comment on above: Performed By: #### L IPA, CMP ####[facility] [address] [place], [place] [address]Dr. Luis Barros Creatinine [Mass/Vol] 0.78 mg/dL Normal 0.55-1.02 [facility] Comment on above: Performed By: #### L IPA, CMP ####[facility] [address] [place], [place] [address]Dr. Luis Barros EGFR-AF MOROCCAN >60 Normal >=60 [facility] Comment on above: Performed By: #### L IPA, CMP ####[facility] [address] [place], [place] [address]Dr. Luis Barros EGFR-NON AF MOROCCAN >60 Normal >=60 [facility] Comment on above: Performed By: #### L IPA, CMP ####[facility] [address] [place], [place] [address]Dr. Luis Barros Globulin (S) [Mass/Vol] 3.2 g/dL Normal [facility] Comment on above: Performed By: #### L IPA, CMP ####[facility] [address] [place], [place] [address]Dr. Jeanettejean Papo Glucose [Mass/Vol] 91 mg/dL Normal 74-106 [facility] Comment on above: Performed By: #### L IPA, CMP ####[facility] [address] [address]Dr. Luis Barros Potassium [Moles/Vol] 3.5 mmol/L Normal 3.5-5.1 [facility] Comment on above: Performed By: #### L IPA, CMP ####[facility] [address] [address]Dr. Luis Barros Protein [Mass/Vol] 6.9 g/dL Normal 6.4-8.2 [facility] Comment on above: Performed By: #### L IPA, CMP ####[facility] [address] [place], [place] [address]Dr. Luis Barros Sodium [Moles/Vol] 138 mmol/L Normal 136-145 [facility] Comment on above: Performed By: #### L IPA, CMP ####[facility] [address] [place], [place] [address]Dr. Luis Barros Urea nitrogen [Mass/Vol] 10.0 mg/dL Normal 7.0-18.0 [facility] Comment on above: Performed By: #### L IPA, CMP ####[facility] [address] [place], [place] [address]Dr. Luis Barros Urea nitrogen/Creatini ne [Mass ratio] 12.8 mg/mg Normal [facility] Comment on above: Performed By: #### L IPA, CMP ####[facility] [address] [place], [place] [address]Dr. Luis Barros URINE MICROSCOPIC ONLYon BACTERIA TRACE Abnormal NONE SEEN [facility] Comment on above: Performed By: #### GUSTAVO ALONSO UMICRO #### [facility] [address] [place] [address] Dr. Luis Barros Bacteria identified Cx Nom (U) NOT INDICATED Normal [facility] Comment on above: Performed By: #### GUSTAVO ALONSO UMLISANDRARO #### [facility] [address] [place] [address] Dr. Luis Barros CAST NONE SEEN Normal NONE SEEN [facility] Comment on above: Performed By: #### E RUR, PREGU, UMICRO #### [facility] [address] [address] [address] Luis Barros Crystals LM Nom (Urine sed) NONE SEEN Normal NONE SEEN [facility] Comment on above: Performed By: #### E RUR, PREGU, UMICRO #### [facility] [address] [place] [address] Dr. Luis Barros Epithelial cells LM Ql (Urine sed) RARE Normal NONE SEEN /RARE [facility] Comment on above: Performed By: #### E RUR, PREGU, UMICRO #### [facility] [address] [place] [address] Dr. Luis Barros MUCOUS NONE SEEN Normal NONE SEEN [facility] Comment on above: Performed By: #### E RUR, PREGU, UMICRO #### [facility] [address] [place] [address] Dr. Luis Barros RBC NONE SEEN Abnormal 0-2 [facility] Comment on above: Performed By: #### E RUR, PREGU, UMICRO #### [facility] [address] [place] [address] Dr. Luis Barros WBC NONE SEEN Normal NONE SEEN [facility] Comment on above: Performed By: #### E RUR, PREGU, UMICRO #### [facility] [address] [place] [address] Dr. Luis Barros XR HAND LT MIN 3Von 02-29-20 22 XR HAND LT MIN 3V EXAM: XR HAND LT MIN 3V HISTORY: Traumatic AND/OR non-traumatic injury COMPARISON: 02/11/2022 TECHNIQUE: 3 views of the hand. FINDINGS: No evidence of acute fracture or dislocation. Joint spaces are maintained. Unremarkable soft tissues. No radiopaque foreign body. IMPRESSION: No evidence of acute fracture or dislocation. Electronically authenticated by: JOSELINE DEL RIO Date: 2022-02-28 00:17 Normal [facility] XR HAND LT MIN 3Von 02-12-20 22 XR HAND LT MIN 3V EXAM: XR HAND LT MIN 3V HISTORY: Pain following fall COMPARISON: None. TECHNIQUE: 3 views FINDINGS: No osseous lesion, fracture, dislocation or subluxation. Joint spaces are normal. No visualized effusion. No visualized soft tissue edema. IMPRESSION: Normal x-rays Electronically authenticated by: HEATHER MONTEZ Date: 2022-02-11 15:25 Normal [facility] CBC AUTO DIFFon 10-18-2021 BASO # 0.0 103/ul Normal 0.0-0.1 [facility] Comment on above: Performed By: #### C BC ####[facility] [address] [id number]. Luis Barros Basophils/100 WBC (Bld) 0.5 % Normal 0.2-2.0 [facility] Comment on above: Performed By: #### C BC ####[facility] [address] [address]Dr. Luis Barros EO # 0.2 103/ul Normal 0.0-0.7 [facility] Comment on above: Performed By: #### C BC ####[facility] [address] [address]Dr. Luis Barros Eosinophils/100 WBC (Bld) 2.6 % Normal 0.9-7.0 [facility] Comment on above: Performed By: #### C BC ####[facility] [address] [address]Dr. Luis Barros Erythrocyte distribution width (RBC) [Ratio] 13.1 % Normal 11.0-15.0 [facility] Comment on above: Performed By: #### C BC ####[facility] [address] [address]Dr. Luis Barros Hematocrit (Bld) [Volume fraction] 41.4 % Normal 36.0-48.0 [facility] Comment on above: Performed By: #### C BC ####[facility] [address] [address]Dr. Luis Barros Hemoglobin (Bld) [Mass/Vol] 14.5 g/dL Normal 12.0-16.0 [facility] Comment on above: Performed By: #### C BC ####[facility] [address] [address]Dr. Luis Barros IG # 0.02 10e3/ul Normal 0.00-0.03 [facility] Comment on above: Performed By: #### C BC ####[facility] [address] [address]Dr. Luis Barros IG % 0.3 % Normal 0.0-0.5 [facility] Comment on above: Performed By: #### C BC ####[facility] [address] [address]Dr. Luis Barros LYMPH # 2.0 103/ul Normal 1.2-3.8 [facility] Comment on above: Performed By: #### C BC ####[facility] [address] [address]Dr. Luis Barros Lymphocytes/100 WBC (Bld) 33.2 % Normal 20.5-60.0 [facility] Comment on above: Performed By: #### C BC ####[facility] [address] [address]Dr. Jeanettejean Barros MANUAL DIFF REQ NO Normal [facility] Comment on above: Performed By: #### C BC ####[facility] [address] [address]Dr. Luis Barros MCH (RBC) [Entitic mass] 30.1 pg Normal 26.7-34.0 [facility] Comment on above: Performed By: #### C BC ####[facility] [address] [address]Dr. Luis Barros MCHC (RBC) [Mass/Vol] 35.0 g/dL Normal 29.9-35.2 [facility] Comment on above: Performed By: #### C BC ####[facility] [address] [address]Dr. Luis Barros MCV (RBC) [Entitic vol] 86.1 fL Normal 81.0-99.0 [facility] Comment on above: Performed By: #### C BC ####[facility] [address] [address]Dr. Luis Barros MONO # 0.4 103/ul Normal 0.3-0.8 [facility] Comment on above: Performed By: #### C BC ####[facility] [address] [address]Dr. Luis Barros Monocytes/100 WBC (Bld) 6.0 % Normal 1.7-12.0 [facility] Comment on above: Performed By: #### C BC ####[facility] [address] [address]Dr. Luis Barros NEUT # 3.5 103/ul Normal 1.4-6.5 [facility] Comment on above: Performed By: #### C BC ####[facility] [address] [address]Dr. Luis Barros Neutrophils/100 WBC (Bld) 57.4 % Normal 43.0-75.0 [facility] Comment on above: Performed By: #### C BC ####[facility] [address] [address]Dr. Luis Barros Platelet mean volume (Bld) [Entitic vol] 9.7 fL Normal 9.5-13.5 [facility] Comment on above: Performed By: #### C BC ####[facility] [address] [address]Dr. Luis Barros PLT 267 103/ul Normal 150-450 [facility] Comment on above: Performed By: #### C BC ####[facility] [address] [address]Dr. Luis Barros RBC 4.81 106/ul Normal 4.20-5.40 [facility] Comment on above: Performed By: #### C BC ####[facility] [address] [id number]. Luis Barros WBC 6.1 103/ul Normal 4.0-11.0 [facility] Comment on above: Performed By: #### C BC ####[facility] [address] [place], [place] [address]Dr. Luis Barros CT PELVIS WO CONon [address] PELVIS WO CON CT pelvis without contrast CLINICAL: Coccygeal pain after fall one month ago. TECHNIQUE: Contiguous transaxial images obtained through the bony pelvis without the administration of intravenous or oral contrast. Coronal and sagittal reformations were obtained. Dose reduction: mA and/or kV are were adjusted by automated exposure control software based upon patients height and weight. FINDINGS: Comparison made to sacrum and coccyx dated 07/16/2021. There is no acute sacral fracture. Again noted is ventral subluxation of the mid coccyx without discrete fracture. This is age indeterminate. 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 There is a 5 mm sclerotic focus within the left anterior acetabulum, likely benign bone island given patient's age. IMPRESSION: 1. No acute sacral fracture. 2. Ventral subluxation of the mid coccyx without discrete coccygeal fracture that appears similar to prior radiographs dated 07/16/2021. This finding is age indeterminate. 3. 5 mm sclerotic focus within the left anterior acetabulum, likely benign bone island given patient's age. Electronically authenticated by: JOSELINE AZAR Date: 2021-10-18 09:18 Normal [facility] PROF CHEM 8 (BAS METB)on Anion gap [Moles/Vol] 12.8 mmol/L Normal [facility] Comment on above: Performed By: #### B MP #### [facility] [address] [address] [address] Luis Barros Calcium [Mass/Vol] 8.8 mg/dL Normal 8.5-10.1 [facility] Comment on above: Performed By: #### B MP #### [facility] [address] [address] [address] Luis Barros Chloride [Moles/Vol] 103 mmol/L Normal 98-107 [facility] Comment on above: Performed By: #### B MP #### [facility] [address] [address] [address] Luis Barros CO2 [Moles/Vol] 27.6 mmol/L Normal 21.0-32.0 [facility] Comment on above: Performed By: #### B MP #### [facility] [address] [address] [address] Luis Barros Creatinine [Mass/Vol] 0.76 mg/dL Normal 0.55-1.02 [facility] Comment on above: Performed By: #### B MP #### [facility] [address] [address] [address] Luis Barros EGFR-AF MOROCCAN >60 Normal >=60 [facility] Comment on above: Performed By: #### B MP #### [facility] [address] [address] [address] Luis Barros EGFR-NON AF MOROCCAN >60 Normal >=60 [facility] Comment on above: Performed By: #### B MP #### [facility] [address] [place] [address] Dr. Luis Barros Glucose [Mass/Vol] 120 mg/dL Critically high 74-106 [facility] Comment on above: Performed By: #### B MP #### [facility] [address] [place] [address] Dr. Luis Barros Potassium [Moles/Vol] 3.4 mmol/L Critically low 3.5-5.1 [facility] Comment on above: Performed By: #### B MP #### [facility] [address] [place] [address] Dr. Luis Barros Sodium [Moles/Vol] 140 mmol/L Normal 136-145 [facility] Comment on above: Performed By: #### B MP #### [facility] [address] [address] [address] Luis Barros Urea nitrogen [Mass/Vol] 9.0 mg/dL Normal 7.0-18.0 [facility] Comment on above: Performed By: #### B MP #### [facility] [address] [place] [address] Dr. Luis Barros Urea nitrogen/Creatini ne [Mass ratio] 11.8 mg/mg Normal [facility] Comment on above: Performed By: #### B MP #### [facility] [address] [place] [address] Dr. Luis Barros PAP, THIN PREP WITH IMAGINGo n 05-18-2019 PAP, THIN PREP WITH IMAGING Normal [facility] Comment on above: Result Comment: Marlene coles Cytologic Interpretation ThinPrep Pap Test (Cervical): Satisfactory for evaluation. A transformation zone component is present. NEGATIVE FOR INTRAEPITHELIAL LESION OR MALIGNANCY. [facility]/05/18/2019 Interpretation performed at [facility], [address] [place] [id number], License number: [id number]. Electronically Signed Out By VERÓNICA Howell(ASCP) Date of Last Menstrual Period: 05/13/19 Other Clinical Conditions: Z12.4 Screenings for malignant neoplasm of cervix Z11.51 Screening for HPV Z11.3 Encntr screen for infections w sexl mode of transmiss Source of Specimen ThinPrep Pap Test (Cervical) Thin Prep Pap (SPECIAL SKILLS OFFICER) Fee Code(s): G0145 The Pap test is a screening test with an inherent, but low, probability of error. The Pap test is primarily effective for the diagnosis and prevention of squamous cell carcinoma. Regular screening is critical for prevention. ThinPrep liquid-based slides, which meet the Metal Fabrication Supervisor criteria for automated screening, have been screened by the ThinPrep Imaging System (as of 01/11/07) along with an additional manual rescreening by a health service worker and, if indicated, by a pathologist. [facility] [address] [place] [address] CLIA No. [id number] CAP Accreditation No. [id number] Director Of Archives: Bijan Perkins M.D. CHLAMYDIA/N. GONORRHOEAE/T. VAGINALIS, AMPLIFIED PROBE (TP)on 05-17-2019 CHLAM TRACHOMATIS rRNA Negative Normal Negative [facility] NEISS GONORRHOEAE rRNA Negative Normal Negative [facility] SOURCE: CERVIX Normal [facility] TRICH VAGINALIS rRNA Negative Normal Negative [facility] Comment on above: Result Comment: NOTE Assay methodology is nucleic acid amplification by student development specialist mediated amplification (TMA) utilizing the Aptima Combo 2 Assay. Performed at [facility] [address] [address] HPV-HR BY TMA, REFLEX 16 AND 18/45on 05-17-2019 HPV HIGH RISK Negative Normal Negative [facility] Comment on above: Result Comment: NOTE This test detects E6/E7 viral messenger RNA of the high-risk HPV types 16, 18, 31, 33, 35, 39, 45, 51, 52, 56, 58, 59, 66 and 68 associated with cervical cancer and its precursor lesions. Cross-reactivity with low-risk HPV genotypes 26, 67, 70 and 82 may occur. Performed at [facility] [address] [address] SOURCE CERVIX Normal [facility] XR KNEE LEFT (1-2 VIEWS)on 0 10-31-2018 XR KNEE LEFT (1-2 VIEWS) EXAMINATION: TWO XRAY VIEWS OF THE LEFT KNEE 10/31/2018 3:31 am COMPARISON: None. HISTORY: ORDERING SYSTEM PROVIDED HISTORY: knee pain r/o michaud's cyst TECHNOLOGIST PROVIDED HISTORY: knee pain r/o michaud's cyst Reason for Exam: posterior left knee pain Mechanism of Injury: none known FINDINGS: Frontal and lateral views of the left knee. No focal soft tissue abnormality. No significant joint effusion. No acute fracture. Bony alignment is normal. Joint spaces are preserved. No aggressive skeletal lesion. IMPRESSION: No acute osseous abnormality. Interpreted by: Bola Hall DO Signed by: Bola Hall DO 10/31/18 Final result Normal [facility] Lipaseon 09-17-2018 Lipase [Catalytic activity/Vol] 31 U/L Normal 13-60 [facility] Comment on above: Performed By: #### C BC, BHARATH, LIP, CMPX #### [facility] [address] [place], [place] [id number] Patient Case Manager: Padilla Calero MD Basic Metabolic Profon 06-26 (cont.) Normal [facility] Comment on above: Result Comment: Aver age GFR for 30-39 years old: 107 mL/min/1.73sq m Chronic Kidney Disease: <60 mL/min/1.73sq m Kidney failure: <15 mL/min/1.73sq m eGFR calculated using average adult body mass. Additional eGFR calculator available at: http://www.[employer].Tag & See/multiple_crcl_2012.htm Performed By: #### C BC, BHARATH, LIP, CMPX #### [facility] [address] [place] [address] Patient Case Manager: Padilla Calero MD Anion gap [Moles/Vol] 12 mmol/L Normal 9-17 [facility] Comment on above: Performed By: #### C BC, BHARATH, LIP, CMPX #### [facility] [address] [place] [address] Patient Case Manager: Padilla Calero MD BUN/CRE Ratio 24 High 9-20 [facility] Comment on above: Performed By: #### C BC, BHARATH, LIP, CMPX #### [facility] [address] [place] [address] Patient Case Manager: Padilla Calero MD Calcium [Mass/Vol] 8.8 mg/dL Normal 8.6-10.4 [facility] Comment on above: Performed By: #### C BC, BHARATH, LIP, CMPX #### [facility] [address] [facility] [place] [address] Patient Case Manager: Padilla Calero MD Chloride [Moles/Vol] 101 mmol/L Normal 98-107 [facility] Comment on above: Performed By: #### C BC, BHARATH, LIP, CMPX #### [facility] [address] [place] [address] Patient Case Manager: Padilla Calero MD CO2 [Moles/Vol] 24 mmol/L Normal 20-31 [facility] Comment on above: Performed By: #### C BC, BHARATH, LIP, CMPX #### [facility] [address] [facility] [place] [address] Patient Case Manager: Padilla Calero MD Creatinine [Mass/Vol] 0.66 mg/dL Normal 0.50-0.90 [facility] Comment on above: Performed By: #### C BC, BHARATH, LIP, CMPX #### [facility] [address] [place] [address] Patient Case Manager: Padilla Calero MD GFR, Amer >60 Normal >60 [facility] Comment on above: Performed By: #### C BC, BHARATH, LIP, CMPX #### [facility] [address] [place] [address] Patient Case Manager: Padilla Calero MD GFR,non Amer >60 Normal >60 [facility] Comment on above: Performed By: #### C BC, BHARATH, LIP, CMPX #### [facility] [address] [place] [address] Patient Case Manager: Padilla Calero MD Glucose [Mass/Vol] 106 mg/dL High 70-99 [facility] Comment on above: Performed By: #### C BC, BHARATH, LIP, CMPX #### [facility] [address] [place] [address] Patient Case Manager: Padilla Calero MD Potassium [Moles/Vol] 3.8 mmol/L Normal 3.7-5.3 [facility] Comment on above: Performed By: #### C BC, BHARATH, LIP, CMPX #### [facility] [address] [place] [address] Patient Case Manager: Padilla Calero MD Sodium [Moles/Vol] 137 mmol/L Normal 135-144 [facility] Comment on above: Performed By: #### C BC, BHARATH, LIP, CMPX #### [facility] [address] [place] [address] Patient Case Manager: Padilla Calero MD Urea nitrogen [Mass/Vol] 16 mg/dL Normal 6-20 [facility] Comment on above: Performed By: #### C BC, BHARATH, LIP, CMPX #### [facility] [address] [place] [address] Patient Case Manager: Padilla Calero MD Staging: NOT REPORTED Normal [facility] Comment on above: Performed By: #### C BC, BHARATH, LIP, CMPX #### [facility] [address] [place] [address] Patient Case Manager: Padilla Calero MD CBC with Diffon 06-26-2018 Abs. Basophil 0.00 k/uL Normal 0.0-0.2 [facility] Comment on above: Performed By: #### C DP, BMP, LIP, DIFE #### [facility] [address] [place] [address] Patient Case Manager: Padilla Calero MD Abs.Neutrophil (Seg) 8.70 k/uL High 1.8-7.7 [facility] Comment on above: Performed By: #### C DP, BMP, LIP, DIFE #### [facility] [address] [place] [address] Patient Case Manager: Padilla Calero MD Basophils/100 WBC (Bld) 0 % Normal 0-2 [facility] Comment on above: Performed By: #### C DP, BMP, LIP, DIFE #### [facility] [address] [place] [address] Patient Case Manager: Padilla Calero MD Eosinophils (Bld) [#/Vol] 0.00 10*3/uL Normal 0.0-0.4 [facility] Comment on above: Performed By: #### C DP, BMP, LIP, DIFE #### [facility] [address] [place] [address] Patient Case Manager: Padilla Calero MD Eosinophils/100 WBC (Bld) 0 % Low 1-4 [facility] Comment on above: Performed By: #### C DP, BMP, LIP, DIFE #### [facility] [address] [facility] [place] [address] Patient Case Manager: Padilla Calero MD Erythrocyte distribution width (RBC) [Ratio] 13.4 % Normal 11.5-14.5 [facility] Comment on above: Performed By: #### C DP, BMP, LIP, DIFE #### [facility] [address] [place] [address]. [place] [address] Patient Case Manager: Padilla aClero MD Hematocrit (Bld) [Volume fraction] 41.9 % Normal 36-46 [facility] Comment on above: Performed By: #### C DP, BMP, LIP, DIFE #### [facility] [address] [place] [address]. [place] [address] Patient Case Manager: Padilla Calero MD Hemoglobin (Bld) [Mass/Vol] 14.3 g/dL Normal 12.0-16.0 [facility] Comment on above: Performed By: #### C DP, BMP, LIP, DIFE #### [facility] [address] [place] [address]. [place] [address] Patient Case Manager: Padilla Calero MD Lymphocytes (Bld) [#/Vol] 1.10 10*3/uL Normal 1.0-4.8 [facility] Comment on above: Performed By: #### C DP, BMP, LIP, DIFE #### [facility] [address] [place] [address]. [place] [address] Patient Case Manager: Padilla Calero MD Lymphocytes/100 WBC (Bld) 11 % Low 24-44 [facility] Comment on above: Performed By: #### C DP, BMP, LIP, DIFE #### [facility] [address] [place] [address] Patient Case Manager: Padilla Calero MD MCH (RBC) [Entitic mass] 29.4 pg Normal 26-34 [facility] Comment on above: Performed By: #### C DP, BMP, LIP, DIFE #### [facility] [address] [facility] [place] [address] Patient Case Manager: Padilla Calero MD MCHC (RBC) [Mass/Vol] 34.2 g/dL Normal 31-37 [facility] Comment on above: Performed By: #### C DP, BMP, LIP, DIFE #### [facility] [facility] [place] [address] Patient Case Manager: Padilla Calero MD MCV (RBC) [Entitic vol] 86.0 fL Normal 80-100 [facility] Comment on above: Performed By: #### C DP, BMP, LIP, DIFE #### [facility] [place] [address] Patient Case Manager: Pdailla Calero MD Monocytes (Bld) [#/Vol] 0.40 10*3/uL Normal 0.2-0.8 [facility] Comment on above: Performed By: #### C DP, BMP, LIP, DIFE #### [facility] [address] [place] [address]. [place] [address] Patient Case Manager: Padilla Calero MD Monocytes/100 WBC (Bld) 4 % Normal 1-7 [facility] Comment on above: Performed By: #### C DP, BMP, LIP, DIFE #### [facility] [place] [address] Patient Case Manager: Padilla Calero MD Neutrophil (Seg) 85 % High 36-66 [facility] Comment on above: Performed By: #### C DP, BMP, LIP, DIFE #### [facility] [address] [facility] [place] [address] Patient Case Manager: Padilla Calero MD Platelet mean volume (Bld) [Entitic vol] 8.1 fL Normal 6.0-12.0 [facility] Comment on above: Performed By: #### C DP, BMP, LIP, DIFE #### [facility] [place] [address] Patient Case Manager: Padilla Calero MD Platelets (Bld) [#/Vol] 275 10*3/uL Normal 130-400 [facility] Comment on above: Performed By: #### C DP, BMP, LIP, DIFE #### [facility] [address] [place] [address]. [place] [address] Patient Case Manager: Padilla Calero MD RBC (Bld) [#/Vol] 4.87 10*6/uL Normal 4.0-5.2 [facility] Comment on above: Performed By: #### C DP, BMP, LIP, DIFE #### [facility] [address] [place] [address]. [place] [address] Patient Case Manager: Padilla Calero MD WBC (Bld) [#/Vol] 10.3 10*3/uL Normal 3.5-11.0 [facility] Comment on above: Performed By: #### C DP, BMP, LIP, DIFE #### [facility] [place] [address] Patient Case Manager: Padilla Calero MD Abs.Imm.Granulocy te NOT REPORTED Normal 0.00-0.30 [facility] Comment on above: Performed By: #### C DP, BMP, LIP, DIFE #### [facility] [address] [place], [place] [address], [place] [address] Patient Case Manager: Padilla Calero MD Auto Diff Performed NOT REPORTED Normal [facility] Comment on above: Performed By: #### C DP, BMP, LIP, DIFE #### [facility] [place] [address] Patient Case Manager: Padilla Calero MD Immature granulocytes (Bld) [#/Vol] NOT REPORTED Normal 0 [facility] Comment on above: Performed By: #### C DP, BMP, LIP, DIFE #### [facility] [address] [place] [address]. [place] [address] Patient Case Manager: Padilla Calero MD NRBC Automated NOT REPORTED Normal [facility] Comment on above: Performed By: #### C DP, BMP, LIP, DIFE #### [facility] [address] [place] [address]. [place] [address] Patient Case Manager: Padilla Calero MD Platelets (Bld) [#/Vol] NOT REPORTED Normal [facility] Comment on above: Performed By: #### C DP, BMP, LIP, DIFE #### [facility] [address] [place] [address]. [place] [address] Patient Case Manager: Padilla Calero MD RBC morphology finding Nom (Bld) NOT REPORTED Normal [facility] Comment on above: Performed By: #### C DP, BMP, LIP, DIFE #### [facility] [address] [place], [place] [address]ia [facility] [place] [address] Patient Case Manager: Padilla Calero MD WBC Morphology NOT REPORTED Normal [facility] Comment on above: Performed By: #### C DP, BMP, LIP, DIFE #### [facility] [address] [place], [place] [address] [place] [address] Patient Case Manager: Padilla Calero MD Diff Methodon 03-02-2019 Diff Method AUTO Normal [facility] Comment on above: Performed By: #### C DP, BMP, LIP, DIFE #### [facility] [address] [place] [address] Patient Case Manager: Padilla Calero MD Lipaseon 06-26-2018 Lipase [Catalytic activity/Vol] 37 U/L Normal 13-60 [facility] Comment on above: Performed By: #### C BC, BHARATH, LIP, CMPX #### [facility] [address] [place] [address] Patient Case Manager: Padilla Calero MD Urinalysis, Routineon 2018 Acetoacetic Acid,Ur Negative Normal NEG [facility] Comment on above: Performed By: #### C BC, BHARATH, LIP, CMPX #### [facility] [address] [place] [address] Patient Case Manager: Padilla Calero MD Bilirubin, SemiQt,Ur Negative Normal NEG [facility] Comment on above: Performed By: #### C BC, BHARATH, LIP, CMPX #### [facility] [address] [place] [address] Patient Case Manager: Padilla Calero MD Color (U) YELLOW Normal YEL [facility] Comment on above: Performed By: #### C BC, BHARATH, LIP, CMPX #### [facility] [address] [place] [address] Patient Case Manager: Padilla Calero MD Glucose Ql (U) Negative Normal NEG [facility] Comment on above: Performed By: #### C BC, BHARATH, LIP, CMPX #### [facility] [address] [place] [address] Patient Case Manager: Padilla Calero MD Hemoglobin, Ur Negative Normal NEG [facility] Comment on above: Performed By: #### C BC, BHARATH, LIP, CMPX #### [facility] [place] [address] Patient Case Manager: Padilla Calero MD Leukocyte esterase Test strip Ql (U) Negative Normal NEG [facility] Comment on above: Performed By: #### C BC, BHARATH, LIP, CMPX #### [facility] [address] [place] [address]. [place] [address] Patient Case Manager: Padilla Calero MD Nitrite,Ur Negative Normal NEG [facility] Comment on above: Performed By: #### C BC, BHARATH, LIP, CMPX #### [facility] [address] [place] [address]. [place] [address] Patient Case Manager: Padilla Calero MD pH (U) 7.5 [pH] Normal 5.0-8.0 [facility] Comment on above: Performed By: #### C BC, BHARATH, LIP, CMPX #### [facility] [address] [place] [address]. [place] [address] Patient Case Manager: Padilla Calero MD Protein Ql (U) TRACE Abnormal NEG [facility] Comment on above: Performed By: #### C BC, BHARATH, LIP, CMPX #### [facility] [address] [place] [address]. [place] [address] Patient Case Manager: Padilla Calero MD Specific gravity (U) [Rel density] 1.015 Normal 1.005-1.030 [facility] Comment on above: Performed By: #### C BC, BHARATH, LIP, CMPX #### [facility] [place] [address] Patient Case Manager: Padilla Calero MD Turbidity CLOUDY Abnormal CLEAR [facility] Comment on above: Performed By: #### C BC, BHARATH, LIP, CMPX #### [facility] [address] [place] [address] Patient Case Manager: Padilla Calero MD Urobilinogen,Ur Normal Normal NORM [facility] Comment on above: Performed By: #### C BC, BHARATH, LIP, CMPX #### [facility] [address] [place] [address] Patient Case Manager: Padilla Calero MD Comment NOT REPORTED Normal [facility] Comment on above: Performed By: #### C BC, BHARATH, LIP, CMPX #### [facility] [address] [place] [address] Patient Case Manager: Padilla Calero MD Urinalysis,Microon 9 ----- Normal [facility] Comment on above: Performed By: #### C BC, BHARATH, LIP, CMPX #### [facility] [address] [place] [address] Patient Case Manager: Padilla Calero MD Amorphous sediment LM Ql (Urine sed) 4+ Abnormal [facility] Comment on above: Performed By: #### C BC, BHARATH, LIP, CMPX #### [facility] [address] [place] [address] Patient Case Manager: Padilla Calero MD Epithelial cells LM.HPF (Urine sed) [#/Area] 5 TO 10 Normal 0-5 [facility] Comment on above: Performed By: #### C BC, BHARATH, LIP, CMPX #### [facility] [address] [place] [address] Patient Case Manager: Padilla Calero MD Mucus Strands 1+ Abnormal [facility] Comment on above: Performed By: #### C BC, BHARATH, LIP, CMPX #### [facility] [address] [facility] [place] [address] Patient Case Manager: Padilla Calero MD RBC (U) [#/Vol] 0 TO 2 Normal 0-2 [facility] Comment on above: Performed By: #### C BC, BHARATH, LIP, CMPX #### [facility] [address] [place], [place] [address]ia [facility] [place] [address] Patient Case Manager: Padilla Calero MD WBC (U) [#/Vol] 2 TO 5 Normal 0-5 [facility] Comment on above: Performed By: #### C BC, BHARATH, LIP, CMPX #### [facility] [address] [place] [address]. [place] [address] Patient Case Manager: Padilla Calero MD Bacteria LM.HPF (Urine sed) [#/Area] NOT REPORTED Normal NONE [facility] Comment on above: Performed By: #### C BC, BHARATH, LIP, CMPX #### [facility] [address] [place] [address]. [place] [address] Patient Case Manager: Padilla Calero MD Casts LM.LPF (Urine sed) [#/Area] NOT REPORTED Normal [facility] Comment on above: Performed By: #### C BC, BHARATH, LIP, CMPX #### [facility] [address] [place], [place] [address] [facility] [place] [address] Patient Case Manager: Padilla Calero MD Crystals LM Nom (Urine sed) NOT REPORTED Normal NONE [facility] Comment on above: Performed By: #### C BC, BHARATH, LIP, CMPX #### [facility] [facility] [place] [address] Patient Case Manager: Padilla Calero MD Epithelial, Renal NOT REPORTED Normal 0 [facility] Comment on above: Performed By: #### C BC, BHARATH, LIP, CMPX #### [facility] [address] [place] [address] Patient Case Manager: Padilla Calero MD Other Observations NOT REPORTED [facility]: Performed By: #### C BC, BHARATH, LIP, CMPX #### [facility] [place] [address] Patient Case Manager: Padilla Calero MD Trichomonas NOT REPORTED Normal NONE [facility] Comment on above: Performed By: #### C BC, BHARATH, LIP, CMPX #### [facility] [address] [place] [address]. [place] [address] Patient Case Manager: Padilla Calero MD Yeast LM Ql (Urine sed) NOT REPORTED Normal [facility] Comment on above: Performed By: #### C BC, BHARATH, LIP, CMPX #### [facility] [address] [place] [address]. [place] [address] Patient Case Manager: Padilla Calero MD Amylaseon 05-30-2018 Amylase [Catalytic activity/Vol] 48 U/L Normal 28-100 [facility] Comment on above: Performed By: #### C BC, BHARATH, LIP, CMPX #### [facility] [address] [place] [address]. [place] [address] Patient Case Manager: Padilla Calero MD CBCon 05-30-2018 Erythrocyte distribution width (RBC) [Ratio] 13.7 % Normal 11.5-14.5 [facility] Comment on above: Performed By: #### C BC, BHARATH, LIP, CMPX #### [facility] [place] [address] Patient Case Manager: Padilla Calero MD Hematocrit (Bld) [Volume fraction] 43.4 % Normal 36-46 [facility] Comment on above: Performed By: #### C BC, BHARATH, LIP, CMPX #### [facility] [address] [facility] [place] [address] Patient Case Manager: Padilla Calero MD Hemoglobin (Bld) [Mass/Vol] 15.2 g/dL Normal 12.0-16.0 [facility] Comment on above: Performed By: #### C BC, BHARATH, LIP, CMPX #### [facility] [address] [place] [address] Patient Case Manager: Padilla Calero MD MCH (RBC) [Entitic mass] 29.8 pg Normal 26-34 [facility] Comment on above: Performed By: #### C BC, BHARATH, LIP, CMPX #### [facility] [address] [place] [address]. [place] [address] Patient Case Manager: Padilla Calero MD MCHC (RBC) [Mass/Vol] 34.9 g/dL Normal 31-37 [facility] Comment on above: Performed By: #### C BC, BHARATH, LIP, CMPX #### [facility] [address] [place] [address]. [place] [address] Patient Case Manager: Padilla Calero MD MCV (RBC) [Entitic vol] 85.2 fL Normal 80-100 [facility] Comment on above: Performed By: #### C BC, BHARATH, LIP, CMPX #### [facility] [place] [address] Patient Case Manager: Padilla Calero MD Platelet mean volume (Bld) [Entitic vol] 8.2 fL Normal 6.0-12.0 [facility] Comment on above: Performed By: #### C BC, BHARATH, LIP, CMPX #### [facility] [address] [place] [address]. [place] [address] Patient Case Manager: Padilla Calero MD Platelets (Bld) [#/Vol] 252 10*3/uL Normal 130-400 [facility] Comment on above: Performed By: #### C BC, BHARATH, LIP, CMPX #### [facility] [address] [place] [address] Patient Case Manager: Padilla Calero MD RBC (Bld) [#/Vol] 5.09 10*6/uL Normal 4.0-5.2 [facility] Comment on above: Performed By: #### C BC, BHARATH, LIP, CMPX #### [facility] [address] [place] [address] Patient Case Manager: Padilla Calero MD WBC (Bld) [#/Vol] 9.4 10*3/uL Normal 3.5-11.0 [facility] Comment on above: Performed By: #### C BC, BHARATH, LIP, CMPX #### [facility] [address] [facility] [place] [address] Patient Case Manager: Padilla Calero MD NRBC Automated NOT REPORTED Normal [facility] Comment on above: Performed By: #### C BC, BHARATH, LIP, CMPX #### [facility] [facility] [place] [address] Patient Case Manager: Padilla Calero MD CT ABDOMEN PELVIS W IV CONTR Lida 05-30-2018 CT ABDOMEN PELVIS W IV CONTRAST EXAMINATION: CT OF THE ABDOMEN AND PELVIS WITH CONTRAST 05/30/2018 11:01 am TECHNIQUE: CT of the abdomen and pelvis was performed with the administration of intravenous contrast. Multiplanar reformatted images are provided for review. Dose modulation, iterative reconstruction, and/or weight based adjustment of the mA/kV was utilized to reduce the radiation dose to as low as reasonably achievable. COMPARISON: Abdomen and pelvis CT dated 09/15/2016. HISTORY: ORDERING SYSTEM PROVIDED HISTORY: ABDOMINAL PAIN TECHNOLOGIST PROVIDED HISTORY: FINDINGS: Lower Chest: Normal aeration of the lung bases. Heart is normal in size. No pericardial effusion. Organs: Minimal residual biliary intrahepatic gas, improved since CT of 2017, the result of prior cholecystectomy. Mild post cholecystectomy dilatation of common bile duct similar to prior exam. Pancreas liver, gallbladder, pancreas, spleen, bilateral adrenal glands are unremarkable. Bilateral kidneys and ureters are unremarkable. GI/Bowel: Stomach is unremarkable. There is mild edema in the wall of the 2nd portion of the duodenum suggestive of duodenitis. Jejunum and ileum are grossly unremarkable. Colon is grossly unremarkable. Pelvis: Urinary bladder is unremarkable. Uterus and bilateral ovaries are unremarkable. No lymphadenopathy. No soft tissue masses or abnormal fluid collections. Peritoneum/Retroperit oneum: No free intraperitoneal fluid or air. No abdominal aortic aneurysm. No retroperitoneal lymphadenopathy. Bones/Soft Tissues: No lytic or blastic lesions in all visualized osseous structures. Small umbilical hernia contains non inflamed omental fat similar to prior exam. IMPRESSION: Mild edema in the wall of the 2nd portion of the duodenum suggestive of duodenitis. Interpreted by: Cathi Durham MD Signed by: Cathi Durham MD 05/30/18 Final result Normal [facility] Comp Metabolic Pr/rfx MGon 0 05-30-2018 (cont.) Normal [facility] Comment on above: Result Comment: Aver age GFR for 30-39 years old: 107 mL/min/1.73sq m Chronic Kidney Disease: <60 mL/min/1.73sq m Kidney failure: <15 mL/min/1.73sq m eGFR calculated using average adult body mass. Additional eGFR calculator available at: http://www.[employer] See/multiple_crcl_2012.htm Performed By: #### C BC, BHARATH, LIP, CMPX #### [facility] [address] [place] [address] Patient Case Manager: Padilla Calero MD Albumin [Mass/Vol] 4.1 g/dL Normal 3.5-5.2 [facility] Comment on above: Performed By: #### C BC, BHARATH, LIP, CMPX #### [facility] [address] [facility] [place] [address] Patient Case Manager: Padilla Calero MD Alkaline Phos 46 U/L Normal 35-104 [facility] Comment on above: Performed By: #### C BC, BHARATH, LIP, CMPX #### [facility] [address] [facility] [place] [address] Patient Case Manager: Padilla Calero MD ALT [Catalytic activity/Vol] 14 U/L Normal 5-33 [facility] Comment on above: Performed By: #### C BC, BHARATH, LIP, CMPX #### [facility] [address] [place] [address]. [place] [address] Patient Case Manager: Padilla Calero MD Anion gap [Moles/Vol] 15 mmol/L Normal 9-17 [facility] Comment on above: Performed By: #### C BC, BHARATH, LIP, CMPX #### [facility] [place] [address] Patient Case Manager: Padilla Calero MD AST [Catalytic activity/Vol] 15 U/L Normal <32 [facility] Comment on above: Performed By: #### C BC, BHARATH, LIP, CMPX #### [facility] [address] [place] [address]. [place] [address] Patient Case Manager: Padilla Calero MD Bilirubin Ql (U) 0.49 mg/dL Normal 0.3-1.2 [facility] Comment on above: Performed By: #### C BC, BHARATH, LIP, CMPX #### [facility] [address] [place] [address]. [place] [address] Patient Case Manager: Padilla Calero MD BUN/CRE Ratio 11 Normal 9-20 [facility] Comment on above: Performed By: #### C BC, BHARATH, LIP, CMPX #### [facility] [address] [place] [address] Patient Case Manager: Padilla Calero MD Calcium [Mass/Vol] 8.8 mg/dL Normal 8.6-10.4 [facility] Comment on above: Performed By: #### C BC, BHARATH, LIP, CMPX #### [facility] [address] [place] [address] Patient Case Manager: Padilla Calero MD Chloride [Moles/Vol] 102 mmol/L Normal 98-107 [facility] Comment on above: Performed By: #### C BC, BHARATH, LIP, CMPX #### [facility] [address] [place] [address] Patient Case Manager: Padilla Calero MD CO2 [Moles/Vol] 21 mmol/L Normal 20-31 [facility] Comment on above: Performed By: #### C BC, BHARATH, LIP, CMPX #### [facility] [address] [place] [address] Patient Case Manager: Padilla Calero MD Creatinine [Mass/Vol] 0.74 mg/dL Normal 0.50-0.90 [facility] Comment on above: Performed By: #### C BC, BHARATH, LIP, CMPX #### [facility] [place] [address] Patient Case Manager: Padilla Calero MD GFR, Amer >60 Normal >60 [facility] Comment on above: Performed By: #### C BC, BHARATH, LIP, CMPX #### [facility] [address] [place] [address] Patient Case Manager: Padilla Calero MD GFR,non Amer >60 Normal >60 [facility] Comment on above: Performed By: #### C BC, BHARATH, LIP, CMPX #### [facility] [address] [place] [address] Patient Case Manager: Padilla Calero MD Glucose [Mass/Vol] 101 mg/dL High 70-99 [facility] Comment on above: Performed By: #### C BC, BHARATH, LIP, CMPX #### [facility] [address] [place] [address] Patient Case Manager: Padilla Calero MD Potassium [Moles/Vol] 3.9 mmol/L Normal 3.7-5.3 [facility] Comment on above: Performed By: #### C BC, BHARATH, LIP, CMPX #### [facility] [address] [place] [address] Patient Case Manager: Padilla Calero MD Protein [Mass/Vol] 6.7 g/dL Normal 6.4-8.3 [facility] Comment on above: Performed By: #### C BC, BHARATH, LIP, CMPX #### [facility] [address] [place] [address] Patient Case Manager: Padilla Calero MD Sodium [Moles/Vol] 138 mmol/L Normal 135-144 [facility] Comment on above: Performed By: #### C BC, BHARATH, LIP, CMPX #### [facility] [address] [place] [address] Patient Case Manager: Padilla Calero MD Urea nitrogen [Mass/Vol] 8 mg/dL Normal 6-20 [facility] Comment on above: Performed By: #### C BC, BHARATH, LIP, CMPX #### [facility] [address] [place] [address] Patient Case Manager: Padilla Calero MD Albumin/Globulin [Mass ratio] NOT REPORTED Normal 1.0-2.5 [facility] Comment on above: Performed By: #### C BC, BHARATH, LIP, CMPX #### [facility] [address] [place] [address] Patient Case Manager: Padilla Calero MD Staging: NOT REPORTED Normal [facility] Comment on above: Performed By: #### C BC, BHARATH, LIP, CMPX #### [facility] [address] [place] [address] Patient Case Manager: Padilla Calero MD Lactic Acidon 05-30-2018 Lactate [Moles/Vol] 1.0 mmol/L Normal 0.5-2.2 [facility] Comment on above: Performed By: #### L AC #### [facility] [place] [address] Patient Case Manager: Padilla Calero MD Lipaseon 05-30-2018 Lipase [Catalytic activity/Vol] 50 U/L Normal 13-60 [facility] Comment on above: Performed By: #### C BC, BHARATH, LIP, CMPX #### [facility] [address] [facility] [place] [address] Patient Case Manager: Padilla Calero MD UA w/Reflex Cultureon 2018 Acetoacetic Acid,Ur Negative Normal NEG [facility] Comment on above: Performed By: #### U MICAO, UAX #### [facility] [address] [place] [address] Patient Case Manager: Padilla Calero MD Bilirubin, SemiQt,Ur Negative Normal NEG [facility] Comment on above: Performed By: #### U MICAO, UAX #### [facility] [address] [place] [address] Patient Case Manager: Padilla Calero MD Color (U) YELLOW Normal YEL [facility] Comment on above: Performed By: #### U MICAO, UAX #### [facility] [address] [place] [address] Patient Case Manager: Padilla Calero MD Glucose Ql (U) Negative Normal NEG [facility] Comment on above: Performed By: #### U MICAO, UAX #### [facility] [address] [place] [address] Patient Case Manager: Padilla Calero MD Hemoglobin, Ur Negative Normal NEG [facility] Comment on above: Performed By: #### U MICAO, UAX #### [facility] [address] [place] [address] Patient Case Manager: Padilla Calero MD Leukocyte esterase Test strip Ql (U) Negative Normal NEG [facility] Comment on above: Performed By: #### U MICAO, UAX #### [facility] [address] [place] [address] Patient Case Manager: Padilla Calero MD Nitrite,Ur Negative Normal NEG [facility] Comment on above: Performed By: #### U MICAO, UAX #### [facility] [address] [place] [address] Patient Case Manager: Padilla Calero MD pH (U) 6.0 [pH] Normal 5.0-8.0 [facility] Comment on above: Performed By: #### U MICAO, UAX #### [facility] [address] [place] [address] Patient Case Manager: Padilla Calero MD Protein Ql (U) Negative Normal NEG [facility] Comment on above: Performed By: #### U MICAO, UAX #### [facility] [address] [place] [address] Patient Case Manager: Padilla Calero MD Specific gravity (U) [Rel density] 1.003 Low 1.005-1.030 [facility] Comment on above: Performed By: #### U MICAO, UAX #### [facility] [address] [place] [address] Patient Case Manager: Padilla Calero MD Turbidity SLIGHTLY CLOUDY Abnormal CLEAR [facility] Comment on above: Performed By: #### U MICAO, UAX #### [facility] [place] [address] Patient Case Manager: Padilla Calero MD Urobilinogen,Ur Normal Normal NORM [facility] Comment on above: Performed By: #### U MICAO, UAX #### [facility] [place] [address] Patient Case Manager: Padilla Calero MD Comment NOT REPORTED Normal [facility] Comment on above: Performed By: #### U MICAO, UAX #### [facility] [place] [address] Patient Case Manager: Padilla Calero MD Urinalysis,Microon 9 ----- Normal [facility] Comment on above: Performed By: #### U MICAO, UAX #### [facility] [place] [address] Patient Case Manager: Padilla Calero MD Bacteria LM.HPF (Urine sed) [#/Area] FEW Abnormal NONE [facility] Comment on above: Performed By: #### U MICAO, UAX #### [facility] [place] [address] Patient Case Manager: Padilla Calero MD Epithelial cells LM.HPF (Urine sed) [#/Area] 10 TO 20 Normal 0-5 [facility] Comment on above: Performed By: #### U MICAO, UAX #### [facility] [address] [facility] [place] [address] Patient Case Manager: Padilla Calero MD RBC (U) [#/Vol] 0 TO 2 Normal 0-2 [facility] Comment on above: Performed By: #### U MICAO, UAX #### [facility] [address] [place] [address]. [place] [address] Patient Case Manager: Padilla Calero MD WBC (U) [#/Vol] 2 TO 5 Normal 0-5 [facility] Comment on above: Performed By: #### U MICAO, UAX #### [facility] [address] [place] [address]. [place] [address] Patient Case Manager: Padilla Calero MD Amorphous sediment LM Ql (Urine sed) NOT REPORTED Normal NONE [facility] Comment on above: Performed By: #### U MICAO, UAX #### [facility] [address] [place] [address]. [place] [address] Patient Case Manager: Padilla Calero MD Casts LM.LPF (Urine sed) [#/Area] NOT REPORTED Normal [facility] Comment on above: Performed By: #### U MICAO, UAX #### [facility] [address] [place] [address]. [place] [address] Patient Case Manager: Padilla Calero MD Crystals LM Nom (Urine sed) NOT REPORTED Normal NONE [facility] Comment on above: Performed By: #### U MICAO, UAX #### [facility] [address] [place] [address]. [place] [address] Patient Case Manager: Padilla Calero MD Epithelial, Renal NOT REPORTED Normal 0 [facility] Comment on above: Performed By: #### U MICAO, UAX #### [facility] [address] [place] [address] Patient Case Manager: Padilla Calero MD Mucus Strands NOT REPORTED Normal NONE [facility] Comment on above: Performed By: #### U MICAO, UAX #### [facility] [address] [place] [address] Patient Case Manager: Padilla Calero MD Other Observations NOT REPORTED Normal NREQ [facility] Comment on above: Performed By: #### U MICAO, UAX #### [facility] [address] [place] [address] Patient Case Manager: Padilla Calero MD Trichomonas NOT REPORTED Normal NONE [facility] Comment on above: Performed By: #### U MICAO, UAX #### [facility] [address] [place] [address] Patient Case Manager: Padilla Calero MD Yeast LM Ql (Urine sed) NOT REPORTED Normal [facility] Comment on above: Performed By: #### U MICAO, UAX #### [facility] [address] [place] [address] Patient Case Manager: Padilla Calero MD Vital Signs Date Time Vital Sign Value Performing Clinician Facility 11-10-2022 16:05-0400 Body height 152.4 cm Jordyn Pena Other [facility] Other 11-10-2022 16:05-0400 Body mass index (BMI) [Ratio] 29.29 kg/m2 Jordyn Pena Other [facility] Other 11-10-2022 16:05-0400 Body weight 68.04 kg Jordyn Gregoryley Other [facility] Other 11-10-2022 16:05-0400 Diastolic blood pressure 75 mm[Hg] Jordyn Gregoryley Other [facility] Other 11-10-2022 16:05-0400 Respiratory rate 18 /min Jordyn Becky Other [facility] Other 11-10-2022 16:05-0400 SaO2% (BldA) [Mass fraction] 98 % Jordyn Gregoryley Other [facility] Other 11-10-2022 16:05-0400 Systolic blood pressure 121 mm[Hg] Jordyn Gregoryley Other [facility] Other 07-10-2022 18:55-0400 Body height 152.4 cm Kae Iglesias Other [facility] Other 07-10-2022 18:55-0400 Body mass index (BMI) [Ratio] 29.68 kg/m2 Kae Iglesias Other [facility] Other 07-10-2022 18:55-0400 Body temperature 99 [degF] Kae Iglesias Other [facility] Other 07-10-2022 18:55-0400 Body weight 68.95 kg Kae Iglesias Other [facility] Other 07-10-2022 18:55-0400 Respiratory rate 18 /min Kae Iglesias Other [facility] Other 07-10-2022 18:55-0400 SaO2% (BldA) [Mass fraction] 99 % Kae Harris Other [facility] Other 06-03-2019 07:38-0500 BMI (Body Mass Index) 26.31 kg/m2 [employer] Phone: 06-03-2019 07:38-0500 Body Temperature 98.01 [degF] [employer] Work Phone: 06-03-2019 07:38-0500 Body weight 73.94 kg [employer] Phone: 06-03-2019 07:38-0500 BP Diastolic 73 mm[Hg] [employer] Phone: 06-03-2019 07:38-0500 BP Systolic 106 mm[Hg] [employer] Work Phone: 06-03-2019 07:38-0500 Height 167.6 cm [employer] Work Phone: 06-03-2019 07:38-0500 Pulse (Heart Rate) 89 /min [email or web address] Work Phone: 06-03-2019 07:38-0500 Pulse Oximetry 98 % [employer] Phone: 06-03-2019 07:38-0500 Respiratory Rate 18 /min [employer] Work Phone: Encounters Encounter Date Encounter Type Care Provider Facility Start: 05-12-2023 End: 05-12-2023 ambulatory HODA BANEGAS Not Available Start: 01-09-2023 End: 01-09-2023 ambulatory SEEMA Mason [facility] Start: 11-10-2022 End: 11-10-2022 ambulatory Jordyn Pena Other [facility] Other Start: 11-10-2022 Office outpatient vi sit 15 minutes Jordyn Pena [facility] Start: 08-25-2022 End: 08-25-[address] NONE LISTED REQUEST Facility:[facility] Start: 07-10-2022 End: 07-10-2022 ambulatory Kae Iglesias Other [facility] [employer] Other Start: 07-10-2022 Office outpatient ne w 20 minutes Kae Iglesias [facility] Start: 04-18-2022 End: 04-19-[address] NONE LISTED REQUEST Facility:[facility] Start: 02-28-2022 End: 02-28-[address] NONE LISTED REQUEST Facility:[facility] Start: 02-11-2022 End: 02-11-[address] NONE LISTED REQUEST Facility:[facility] Start: 10-18-2021 End: 10-18-[address] NONE LISTED REQUEST Facility: Start: 10-18-2021 End: 10-18-[address] NONE LISTED REQUEST Facility: Start: 06-03-2019 End: 06-03-2019 Emergency department patient visit Roddyenrique Lincoln Work Phone: [facility] Comment on above: Viral URI with cough (Primary Dx) Start: 10-31-2018 End: 10-31-2018 [facility]: 09-17-2018 End: 09-17-2018 Emergency department patient visit MIHAELA HENDRICKS [facility] Start: 06-26-2018 End: 06-26-2018 Emergency department patient visit ANG ENRIQUEAIN [facility] Start: 05-30-2018 End: 05-30-2018 Emergency department patient visit MARCELINA Hill CHYNA [facility] Start: 12-05-2017 End: 12-06-2017 Emergency department patient visit DANNI BERRY [facility] Procedures Date Procedure Procedure Detail Performing Clinician Start: 01-09-2023 BEDREST SEEMA JUAN Start: 01-09-2023 Continuous pulse oximetry SEEMA MENCHACA Start: 01-09-2023 INITIATE PACU OXYGEN THERAPY PROTOCOL SEEMA MENCHACA Start: 01-09-2023 NOTIFY PHYSICIAN (SPECIFY) SEEMA MENCHACA Start: 01-09-2023 NURSING COMMUNICATION J OSEPH NIKOLAI Start: 01-09-2023 VITAL SIGNS SEEMA JUAN Start: 01-09-2023 DISCHARGE PATIENT PETAR MENCHACA Start: 01-09-2023 Level iv surg pathol ogy gross&microscopic exam SEEMA MENCHACA Start: 01-09-2023 Blood count complete auto&auto difrntl wbc SEEMA MENCHACA Start: 01-09-2023 Urine test visual color cmprsn meths SEEMA MENCHACA Start: 01-09-2023 FULL CODE SEEMA JUAN Start: 10-31-2018 APPLY HEBER WRAP ASOK SIN RIOS Start: 10-31-2018 Radiologic examinati on knee 1/2 views ASOK JAMAL Start: 09-17-2018 Urine test visual color cmprsn meths ASOK JAMAL Start: 09-17-2018 Assay of lipase ASOK SI NHA Start: 09-17-2018 INSERT PERIPHERAL IV OK JAMAL Start: 06-26-2018 Urine test visual color cmprsn meths ASOK JAMAL Start: 06-26-2018 Urnls dip stick/tabl et rgnt non-auto w/o micrscp ASOK JAMAL Start: 06-26-2018 Assay of lipase ASOK SI NHA Start: 06-26-2018 Basic metabolic pane l calcium total ASOK JAMAL Start: 06-26-2018 Blood count complete auto&auto difrntl wbc ASOK JAMAL Start: 06-26-2018 INSERT PERIPHERAL IV OK JAMAL Start: 06-26-2018 Urinalysis microscopic only ASOK JAMAL Start: 06-26-2018 Urnls dip stick/tabl et rgnt auto w/o microscopy ASOK JAMAL Start: 05-30-2018 Ct abdomen & pelvis w/contrast material ASOK JAMAL Start: 05-30-2018 Assay of lactate ASOK S INHA Start: 05-30-2018 INSERT PERIPHERAL IV OK JAMAL Start: 05-30-2018 Assay of amylase ASOK S INHA Start: 05-30-2018 Assay of lipase ASOK SI NHA Start: 05-30-2018 Blood count complete auto&auto difrntl wbc ASOK JAMAL Start: 05-30-2018 Blood count complete automated ASOK JAMAL Start: 05-30-2018 Microscopic urinalysis ASOK JAMAL Start: 02-03-2019 URINE RT REFLEX TO CULTURE ASOK JAMAL Plan of Treatment Date Care Activity Detail Author Start: 2037 Shingles Vaccine (1 of 2) Roberts gles Vaccine (1 of 2) [facility] Phone: Start: 05-16-2022 Cervical cancer screen Cervical canc er screen [facility] Phone: Start: 12-26-2018 Influenza vaccination Flu vaccine (# 1) [facility] Phone: Start: 2002 HIV screen HIV screen [facility] Phone: Start: 1998 DTaP/Tdap/Td vaccine (1 - Tdap) DTaP/Tdap/Td vaccine (1 - Tdap) [facility] Phone: Start: 1988 Varicella vaccine (1 of 2 - 2-dose childhood series) Varicella vaccine (1 of 2 - 2-dose childhood series) [facility] Phone: Payers Date Payer Category Payer Medicaid [id number] 2022 Medicaid [id number] 2018 Unknown [facility] [employer] PPO xxxxxxxxxxx 2018-Present [phone] [address] [place] [address] xxxxxxxxxxx [id number] 1987 Unknown [id number] 1987 Unknown [id number] 1987 Unknown [id number] 1987 Unknown [id number] 1987 Unknown [id number] 1987 Unknown [id number] 1987 Unknown [id number] 1987 Unknown [id number] 1987 Unknown [id number] 1959 Medicaid [id number] 1957 Self-pay Social History Date Type Detail Facility Start: 06-03-2019 Tobacco smoking status HIIS Former smoker [facility] Phone: End: 06-24-2018 History of tobacco use Current smoker [facility] Phone: Start: 06-03-2019 Alcohol intake Current drinker of alcohol (finding) [facility] Phone: Start: 07-22-2018 Alcohol Comment occassionally [facility] Phone: Sex Assigned At Not on file [facility] Phone: Sex Assigned At Sex Assigned At [facility] Other Evaluation note 11-10-2022 Note Date & Type Note Facility 11-10-2022 Evaluation note Encounter Date Diagnosis Assessment Notes Oct, Migraine without aura and without status migrainosus, not intractable (ICD-10 - G43.009) Patient is stable overall. Will treat with Toradol 60 mg given in office. Discussed may resume NSAIDs tomorrow morning. May use Tylenol tonight. Rest in dark quiet room. Avoid electronic use. May try ice or heat to forehead and neck to help with discomfort. Work note given. Follow-up with PCP if not improving over the next 24 to 48 hours. ER if significantly worsening symptoms. Will Rx as needed Zofran to help with nausea. Push fluids. Patient verbalized understanding of treatment plan. [facility] Other Evaluation note 07-10-2022 Note Date & Type Note Facility 07-10-2022 Evaluation note Encounter Date Diagnosis Assessment Notes Jun, Nasal congestion (ICD-10 - R09.81) covid and flu neg, see above. Jun, Viral URI (ICD-10 - J06.9) Informed pt that testing was negative. Will treat as viral at this time based on PE findings. Therefore, no abx is indicated for tx. Rx steroid as directed with food. Rx nasal spray as directed. Supportive care as directed. Rest and push fluids. Pt received work note. Pt to take otc antipyretic prn for fever and aches. If coughing patient may take rx cough medicine. Pt to f/u with pcp as needed for persistent or recurrent sx. Pt understood and agreed to treatment plan. 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 * Viral Infections (Montenegrin) * URI (Upper Respiratory Infection): Viral (Montenegrin) documented in this encounter Assessments Diagnosis Viral URI with cough- Primary Acute upper respiratory infections of unspecified site Additional Source Comments INFORMATION SOURCE (unrecogn ized section and content) DATE CREATED AUTHOR 10/31/2018 [facility] DATE CREATED AUTHOR AUTHOR'S ORGANIZ ATION 05/18/2019 [facility] [employer] DATE CREATED AUTHOR AUTHOR'S ORGANIZ ATION 08/28/2022 [facility] DATE CREATED AUTHOR AUTHOR'S ORGANIZ ATION 01/15/2023 [facility] DATE CREATED AUTHOR AUTHOR'S ORGANIZ ATION 05/13/2023 [facility] EPIC Reason for Visit (unrecogniz ed section and content) Reason Comments Influenza patient c/o flu like symptoms since thursday to include cough fevers body aches FOR RECORDS PERTAINING TO PATIENTS WHO ARE OR HAVE BEEN ENROLLED IN A CHEMICAL DEPENDENCY/SUBSTANCEABUSE PROGRAM, SOME INFORMATION MAY BE OMITTED. This clinical summary was aggregated from multiple sources. Caution should be exercised in using it in the provision of clinical care. This summary normalizes information from multiple sources, and as a consequence, information in this document may materially change the coding, format and clinical context of patient data. In addition, data may be omitted in some cases. CLINICAL DECISIONS SHOULD BE BASED ON THE PRIMARY CLINICAL RECORDS. [facility] [employer], [facility]. provides no warranty or guarantee of the accuracy or completeness of information in this document.
[2023-06-22 23:40] LABS: Internal Control Within Normal Limits; Strep A Antigen Screen Negative
[2023-06-22 23:45] LABS: Influenza Virus A Antigen Negative; Influenza Virus B Antigen Negative; Internal Control Within Normal Limits; SARS-CoV-2 Ag NEGATIVE (NEGATIVE)
--- NOTE | 2023-06-23 00:13 | ED_ITS ---
HPI - URI/Sore Throat General Chief Complaint: Upper Respiratory Infection Stated Complaint: SORE THROAT Time Seen by Provider: 06/22/23 23:26 Source: patient History of Present Illness HPI Narrative: This 38-year-old female presents for evaluation of a sore throat and drainage from her left tonsil. The patient states she saw something in her left tonsil that looked enlarged and she pressed on it and thick red gelatinous material came out of her tonsil. She is not having any difficulty breathing or swallowing. She has no neck pain or stiffness. She denies any headache. She has been having some chills. She denies any chest pain or shortness of breath. She d enies any nausea vomiting or diarrhea. Related Data Home Medications Medication Instructions Recorded Confirmed ferrous sulfate 325 mg (65 mg 325 mg PO BID 06/22/23 06/22/23 iron) tablet (FeroSul) Allergies Allergy/AdvReac Type Severity Reaction Status Date / Time No Known Drug Allergies Allergy Verified 11/27/22 11:16 Review of Systems ROS Status of ROS 10 or more systems reviewed and unremark able except as noted in history and below Exam Narrative Exam Narrative: Nurses note and vital signs reviewed and patient is not hypoxic. General: The patient appears well and in no apparent distress. Patient is resting comfortably on cart. Skin: Warm, dry, no pallor noted. There is no rash noted. Head: Normocephalic, atraumatic Eye: Normal conjunctiva, no drainage, EOMI. PERRL Ears, Nose, Mouth, and Throat: oral mucosa is moist. There is mild tonsillar hypertrophy and erythema. There is no peritonsillar abscess appreciated. I am unable to appreciate the area that the patient states was edematous with bloody gelatinous drainage. There is no swelling of the tongue, uvula for and just soft tissues. Uvula is midline and not inflamed. Cardiovascular: Regular Rate and Rhythm Respiratory: Patient is in no distress, no accessory muscle use, lungs are clear to auscultation, no wheezing, rales or rhonchi Neurological: A&O x4, normal speech Psychiatric: Cooperative Constitutional Vital Signs, click to edit/add: Last Vital Signs Temp 98.8 F 06/22/23 23:17 Pulse 82 06/23/23 00:30 Resp 18 06/22/23 23:17 BP 113/62 06/23/23 00:30 Pulse Ox 100 06/23/23 00:30 Course Vital Signs Vital signs: Vital Signs Temperature 98.8 F 06/22/23 23:17 Pulse Rate 85 06/22/23 23:17 Respiratory Rate 18 06/22/23 23:17 Blood Pressure 116/73 06/22/23 23:17 Pulse Oximetry 100 06/22/23 23:17 Temperature 98.8 F 06/22/23 23:17 Pulse Rate 82 06/23/23 00:30 Respiratory Rate 18 06/22/23 23:17 Blood Pressure 113/62 06/23/23 00:30 Pulse Oximetry 100 06/23/23 00:30 MDM - URI/Sore Throat MDM Narrative Medical decision making narrative: This otherwise healthy 38-year-old female presents for evaluation of a sore throat and drainage from the left tonsil. She also has chills. Her strep test was negative. I did not appreciate any peritonsillar abscess or other acute abnormality in her posterior pharynx. Due to the history of drainage of something that could possibly of been an abscess or a tonsilith may have become infected she was medicated with a dose of amoxicillin emergency department and a dose of ibuprofen for the pain will be discharged home with prescription for amoxicillin to use to treat tonsillitis. Lab Data Labs: Lab Results 06/22/23 06/22/23 Range/Units 23:20 23:25 Influenza Type A Ag Negative Influenza Type B Ag Negative SARS-CoV-2 Ag (CV2AG) Negative (NEGATIVE) Streptococcus Screen Negative Discharge Plan Discharge Chief Complaint: Upper Respiratory Infection Clinical Impression: Acute tonsillitis Patient Disposition: Home, Self-Care Time of Disposition Decision: 00:02 Condition: Good Prescriptions / Home Meds: No Action ferrous sulfate [FeroSul] 325 mg (65 mg iron) tablet 325 mg PO BID Instructions: Tonsillitis (ED) Stand Alone Forms: Portal Instructions Referrals: Physician,Non-Staff, MD [Primary Care Provider] - 1 week Discharge Date/Time: 06/23/23 00:32
[2023-06-23] MEDS: IBUPROFEN 600 MG TABLET PO (00:28)
[2023-06-23] MEDS: AMOXICILLIN 500 MG CAPSULE PO (00:28)
[2023-06-23 00:30] VITALS: BP 113/62; PULSE 82; O2SAT 100
== END 2023-06-23 00:32 | disposition home or self-care (01) ==
PROVIDERS: Emergency Provider Emergency Medicine
DX: J03.90 Acute tonsillitis, unspecified (principal)
CPT/HCPCS: 87070; 87804; 87811; 87880; 99283

== ENCOUNTER 2024-06-04 15:57 | Emergency (ER) | payer OTHER, SELFPAY ==
[2024-06-04 16:02] VITALS: BP 129/83; PULSE 93; TEMP 36.8; O2SAT 100; BMI 28.3
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
--- NOTE | 2024-06-04 16:10 | XR_ITS ---
The [address] [address] Patient Name: ROLY CHAO MRN: [id number] date: 1985 Sex: F Assigned Patient Location: ER Current Patient Location: Accession/Order Number: [id number] Exam Date: 06/04/2024 16:15 Report Date: 06/04/2024 17:43 At the request of: YULIYA GO Procedure: XR shoulder RT min 2V EXAMINATION: XR shoulder RT min 2V, , 06/04/2024 1:15 PM PST INDICATION: right shoulder pain HISTORY: Ordering Provider Reason for Exam: right shoulder pain Technologist Note: Additional: COMPARISON: None. TECHNIQUE: Right shoulder x-ray: 3 view(s). FINDINGS: No acute fracture. Glenohumeral and acromioclavicular joints are anatomically aligned. Joint spaces are preserved. Soft tissues are unremarkable. XR/XR shoulder RT min 2V IMPRESSION: No acute fracture or traumatic malalignment. Electronically authenticated by: ISMAEL LOVE Date: 06/04/2024 17:43
--- NOTE | 2024-06-04 16:12 | PC.NURSE ---
no deformity, no redness, bruising or swelling. pt able to move right arm but c/o pain with movement.
--- OUTSIDE RECORDS SUMMARY | 2024-06-04 16:19 | XMS_ITS | CCD ---
Author Organization [facility] Care Team Providers Care Directional Bore Operator Name Role Phone JAMAL DANNI Deras Attending Unavailable MARCELINA CLEMENTE Attending Unavailable ANG MCADASM Attending Unavailable MIHAELA HENDRICKS Attending Unavailable MEJIA [...] Unavailable REQUEST, NONE LISTED Primary Care Unavaila CARINA Jacobs Consulting Unavailable JEFFRY ANDRE Admitting Unavailable JEFFRY ANDRE Attending Unavailable WAYNE TURNER Consulting Unavailable REQUEST, NONE LISTED Primary Care Unavaila ble MARKER ., DR MARKS Admitting Unavailable MARKER ., DR MARKS Consulting Unavailable MARKER ., DR MARKS Attending Unavailable JOSELINE DEL RIO Consulting Unavailable REQUEST, NONE LISTED Primary Care Unavaila ble DONAVAN ., RICKI DWYER Consulting Unavailcecilia PORTER ., DR LEDESMA Admitting Unavailable CHARLOTTE ., DR LEDESMA Attending Unavailable HEATHER MONTEZ Consulting Unavailable REQUEST, NONE LISTED Primary Care Unavaila JEFFRY Pineda Admitting Unavailable JEFFRY ANDRE Consulting Unavailable JEFFRY ANDRE Attending Unavailable JOSELINE AZAR Consulting Unavailable Jordyn Pena Unavailable HODA BANEGAS Attending Unavailable Unavailable Primary Care Provider UnavailMACRINA Harden Attending Unavailab le No Family, Physician Primary Care Unavailable DOROTHEA PÉREZ Attending Unavailable No Family, Physician Primary Care Unavailable DOROTHEA PÉREZ Attending Unavailable No Family, Physician Primary Care Unavailable Medications Current Medications Medication Drug Class(es) [...] for Cough 20 capsule 0 06/03/2019 Active brompheniramine maleate 0.4 mg/ml / dextromethorphan hydrobromide 2 mg/ml / pseudoephedrine hydrochloride 6 mg/ml oral solution (1 source) alpha-Adrenergic Agonist, Uncompetitive R-gtbpyv-P-aspartate Receptor Antagonist, Sigma-1 Agonist Start: 05-02-2024 take 5 mL by mouth four times daily as needed for cough dnekxaxeskzqbja-kmywhzjqkpsjnsi-UO 2-30-10 MG/5ML syrup Take 5 mLs by mouth 4 times daily as needed for Congestion or Cough 118 mL 05/02/2024 Active Start: 05-02-2024 take 5 mL by mouth four times daily as needed for cough koiglrqjftgauuf-mvnfwqjtbbnnxea-TB 2-30- 10 MG/5ML syrup Take 5 mLs by mouth 4 times daily as needed for Congestion or Cough 118 mL 05/02/2024 Active Brompheniramine / Pseudoephedrine (1 source) alpha-Adrenergic Agonist Start: 07-10-2022 take 10 mL by mouth every four hours as needed Bromfed DM 30-2-10 MG/5ML 10 ml as needed Orally every 4 hrs Jun, Active ibuprofen 600 mg oral tablet (4 sources) Nonsteroidal Anti-inflammatory Drug Start: 05-02-2024 take 1 tablet by mouth three times daily as needed for pain ibuprofen (ADVIL;MOTRIN) 600 MG tablet Take 1 tablet by mouth 3 times daily as needed for Pain 30 tablet 05/02/2024 Active Start: 01-06-2024 End: 05-02-2024 take 1 tablet by mouth every eight hours as needed for pain ibuprofen (IBU) 600 MG tablet Take 1 tablet by mouth every 8 hours as needed for Pain 30 tablet 01/06/2024 05/02/2024 Discontinued Start: 01-09-2023 take 1 tablet [place] th every six hours as needed for pain ibuprofen (ADVIL;MOTRIN) 800 MG tablet Take 1 tablet by mouth every 6 hours as needed for Pain 20 tablet 0 01/09/2023 Active Start: 05-02-2019 take 1 tablet by km th every six hours as needed for pain ibuprofen (IBU) 600 MG tablet Take 1 tablet by mouth every 6 hours as needed for Pain 60 tablet 0 05/02/2019 Active Magic Mouthwash (MIRACLE MOUTHWASH) (1 source) Start: 12-03-2023 Magic Mouthwash (MIRACLE MOUTHWASH) Swish, gargle and swallow 5-10 mL every 2-3 hours as needed for pain. (Lidocaine 2% viscous solution, Benadryl liquid, Maalox) in a 1-1-1 mixture. 90 mL 0 12/03/2023 Active methylPREDNISolone 4 mg oral tablet (1 source) Corticosteroid Start: 07-10-2022 methylPREDNISolone 4 MG as directed Orally Jun, Active ondansetron 4 mg disintegrating oral tablet (3 sources) Serotonin-3 Receptor Antagonist Start: 05-02-2024 take 1 tablet by mouth three times daily as needed for nausea ondansetron (ZOFRAN-ODT) 4 MG disintegrating tablet Take 1 tablet by mouth 3 times daily as needed for Nausea or Vomiting 5 tablet 05/02/2024 Active Start: 01-06-2024 End: 05-02-2024 take 1 tablet by mouth three times daily as needed for nausea ondansetron (ZOFRAN-ODT) 4 MG disintegrating tablet Take 1 tablet by mouth 3 times daily as needed for Nausea or Vomiting 8 tablet 01/06/2024 05/02/2024 Discontinued (LIST CLEANUP) Start: 11-10-2022 take 1 tablet by km th every eight hours as needed for nausea Ondansetron 4 MG 1 tablet on the tongue and allow to dissolve Orally every 8 hours prn nausea for 5 days Oct, Active sodium chloride 0.111 meq/ml nasal solution (1 source) Start: 05-02-2024 sodium chlorid e (OCEAN) 0.65 % nasal spray 1 spray by Nasal route as needed for Congestion 88 mL 05/02/2024 Active Start: 05-02-2024 sodium chlorid e (OCEAN) 0.65 % nasal spray 1 spray by Nasal route as needed for Congestion 88 mL 05/02/2024 Active Completed/Discontinued Medications Medication Drug Class(es) Dates [...] Classification Problem Date Documented Da te Episodic/Chronic Cardiac dysrhythmias (1 source) Other specified cardiac arrhythmias; Translations: [OTHER SPECIFIED CARDIAC ARRHYTHMIAS] Onset: 10-21-2021 Chronic Conditions associated with dizziness or vertigo (3 sources) Dizziness and giddiness; Translations: [DIZZINESS AND GIDDINESS] Onset: 08-25-2022 Episodic Headache; including migraine (2 sources) Migraine without aura, not refractory ; Translations: [Migraine without aura, not intractable, without status migrainosus] Chronic Influenza (2 sources) Influenza; Translations: [Influenza due to unidentified influenza virus with other respiratory manifestations] Onset: 05-02-2024 05-02-2024 Episodic Other nervous system disorders (1 source) Polyneuropathy, unspecified; Translations: [POLYNEUROPATHY UNSPECIFIED] Onset: 03-03-2022 Chronic Other nervous system disorders (1 source) Other chronic pain; Translations: [OTHER CHRONIC PAIN] Onset: 10-21-2021 Chronic Other upper respiratory disease (1 source) Nasal congestion Episodic Residual codes; unclassified (1 source) Acquired [...] Classification Problem Date Documented Date Episodic/Chronic Abdominal hernia (2 sources) Umbilical hernia; Translations: [Umbilical hernia without obstruction or gangrene] Onset: 01-05-2023 01-05-2023 Episodic Abdominal pain (4 sources) Epigastric pain; Translations: [Unspecified abdominal pain] Onset: 04-18-2022 Episodic Allergic reactions (1 source) Unspecified contact dermatitis due to plants, except food; Translations: [Unspecified contact dermatitis due to plants, except food] Onset: 01-06-2024 Episodic E Codes: Fall (1 source) Unspecified fall, initial encounter; Translations: [UNSPECIFIED FALL INITIAL ENCOUNTER] Onset: 02-12-2022 Episodic Nausea and vomiting (2 sources) Nausea; Translations: [Nausea with vomiting, unspecified] Onset: 04-23-2022 Episodic Other connective tissue disease (4 sources) Pain in left finger(s); Translations: [PAIN IN LEFT FINGERS] Onset: 02-28-2022 Episodic Other connective tissue disease (1 source) Pain in left hand; Translations: [PAIN IN LEFT HAND] Onset: 02-12-2022 Episodic Other injuries and conditions due to external causes (1 source) Other injury of unspecified body region, initial encounter; Translations: [Other injury of unspecified body region, initial encounter] Onset: 01-06-2024 Episodic Other upper respiratory infections (4 sources) Viral upper respiratory tract infection; Translations: [Acute upper respiratory infection, unspecified] Onset: 12-03-2023 Episodic Spondylosis; intervertebral disc disorders; other back problems (4 sources) Sacrococcygeal disorders, not elsewhere classified; Translations: [SACROCOCCYGEAL DISORDERS NEC] Onset: 10-18-2021 Episodic Sprains and strains (2 sources) Unspecified sprain of left middle finger, initial encounter; Translations: [Unspecified sprain of right index finger, initial encounter] Onset: 02-12-2022 Episodic Results Test Name Value Interpretation Reference Range Facility Rapid Strep Screenon 024 Specimen source Nom (Unsp spec) .THROAT SWAB [facility] Strep A, Molecular Negative NEGATIVE [facility] Strep Group A, Rapidon 12-02 Strep A, Molecular Negative Normal NEG [facility] Comment on above: Performed By: #### R SAB #### [address] [place] [address] Program Clerk: Devonte Olmedo MD Source .THROAT SWAB Normal [facility] Comment on above: Performed By: #### R SAB #### [address] [place] [address] Program Clerk: Devonte Olmedo MD CARDIAC GREY ADMITon 023 CK [Catalytic activity/Vol] 50 U/L Normal 26-192 [facility] Comment on above: Performed By: #### C ELY, BMP ####[facility] [address] [place] [address]Dr. Luis Barros CK.MB [Mass/Vol] ng/mL Normal <=3.60 [facility] Comment on above: Performed By: #### C ELY, BMP ####[facility] [address] [address]Dr. Luis Barros HSTROP 4.7 pg/mL Normal 4.0-51.3 [facility] Comment on above: Result Comment: CUT- OFF POINTS HAVE BEEN ESTABLISHED BASED ON THE FOURTH UNIVERSAL DEFINITIONS OF MYOCARDIAL INFARCTION. THE UPPER REFERENCE LIMIT (URL) OF TROPONIN, DEFINED THE 99TH PERCENTILE OF cTnI DISTRIBUTION IN A REFERENCE POPULATION, HAS BEEN CONFIRMED THE DECISION THRESHOLD FOR MA DIAGNOSIS. Performed By: #### C LUIZM, BMP ####[facility] [address] [address]Dr. Luis Barros AVANI 43 ng/mL Normal 9-82 [facility] Comment on above: Performed By: #### C LUIZM, BMP ####[facility] [address] [address]Dr. Luis Barros CBC AUTO DIFFon 08-25-2022 BASO # 0.0 103/ul Normal 0.0-0.1 [facility] Comment on above: Performed By: #### C BC #### [facility] [address] [place] [address] Dr. Luis Barros Basophils/100 WBC (Bld) 0.5 % Normal 0.2-2.0 [facility] Comment on above: Performed By: #### C BC #### [facility] [address] [place] [address] Dr. Luis Barros EO # 0.1 103/ul Normal 0.0-0.7 [facility] Comment on above: Performed By: #### C BC #### [facility] [address] [place] [address] Dr. Luis Barros Eosinophils/100 WBC (Bld) 1.2 % Normal 0.9-7.0 [facility] Comment on above: Performed By: #### C BC #### [facility] [address] [place] [address] Dr. Luis Barros Erythrocyte distribution width (RBC) [Ratio] 13.2 % Normal 11.0-15.0 [facility] Comment on above: Performed By: #### C BC #### [facility] [address] [place] [address] Dr. Luis Barros Hematocrit (Bld) [Volume fraction] 43.0 % Normal 36.0-48.0 [facility] Comment on above: Performed By: #### C BC #### [facility] [address] [place] [address] Dr. Luis Barros Hemoglobin (Bld) [Mass/Vol] 14.2 g/dL Normal 12.0-16.0 [facility] Comment on above: Performed By: #### C BC #### [facility] [address] [place] [address] Dr. Luis Barros IG # 0.04 10e3/ul Critically high 0.00-0.03 [facility] Comment on above: Performed By: #### C BC #### [facility] [address] [place] [address] Dr. Luis Barros IG % 0.5 % Normal 0.0-0.5 [facility] Comment on above: Performed By: #### C BC #### [facility] [address] [place] [address] Dr. Luis Barros LYMPH # 1.7 103/ul Normal 1.2-3.8 [facility] Comment on above: Performed By: #### C BC #### [facility] [address] [place] [address] Dr. Luis Barros Lymphocytes/100 WBC (Bld) 20.2 % Critically low 20.5-60.0 [facility] Comment on above: Performed By: #### C BC #### [facility] [address] [place] [address] Dr. Luis Barros MANUAL DIFF REQ NO Normal [facility] Comment on above: Performed By: #### C BC #### [facility] [address] [place] [address] Dr. Luis Barros MCH (RBC) [Entitic mass] 29.5 pg Normal 26.7-34.0 [facility] Comment on above: Performed By: #### C BC #### [facility] [address] [place] [address] Dr. Luis Barros MCHC (RBC) [Mass/Vol] 33.0 g/dL Normal 29.9-35.2 [facility] Comment on above: Performed By: #### C BC #### [facility] [address] [place] [address] Dr. Luis Barros MCV (RBC) [Entitic vol] 89.4 fL Normal 81.0-99.0 [facility] Comment on above: Performed By: #### C BC #### [facility] [address] [place] [address] Dr. Luis Barros MONO # 0.4 103/ul Normal 0.3-0.8 [facility] Comment on above: Performed By: #### C BC #### [facility] [address] [place] [address] Dr. Luis Barros Monocytes/100 WBC (Bld) 5.1 % Normal 1.7-12.0 [facility] Comment on above: Performed By: #### C BC #### [facility] [address] [address] [address] Luis Barros NEUT # 6.0 103/ul Normal 1.4-6.5 [facility] Comment on above: Performed By: #### C BC #### [facility] [address] [address] [address] Luis Barros Neutrophils/100 WBC (Bld) 72.5 % Normal 43.0-75.0 [facility] Comment on above: Performed By: #### C BC #### [facility] [address] [address] [address] Luis Barros Platelet mean volume (Bld) [Entitic vol] 9.4 fL Critically low 9.5-13.5 [facility] Comment on above: Performed By: #### C BC #### [facility] [address] [address] [address] Luis Barros PLT 261 103/ul Normal 150-450 [facility] Comment on above: Performed By: #### C BC #### [facility] [address] [address] [address] Luis Barros RBC 4.81 106/ul Normal 4.20-5.40 [facility] Comment on above: Performed By: #### C BC #### [facility] [address] [address] [address] Luis Barros WBC 8.2 103/ul Normal 4.0-11.0 [facility] Comment on above: Performed By: #### C BC #### [facility] [address] [address] [address] Luis Barros PROF CHEM 8 (BAS METB)on Anion gap [Moles/Vol] 9.1 mmol/L Normal [facility] Comment on above: Performed By: #### C ELY, BMP ####[facility] [address] [address]Dr. Luis Barros Calcium [Mass/Vol] 8.5 mg/dL Normal 8.5-10.1 [facility] Comment on above: Performed By: #### C ELY, BMP ####[facility] [address] [address]Dr. Luis Barros Chloride [Moles/Vol] 108 mmol/L Critically high 98-107 [facility] Comment on above: Performed By: #### David GRAVES, BMP ####[facility] [address] [address]Dr. Luis Barros CO2 [Moles/Vol] 31.4 mmol/L Normal 21.0-32.0 [facility] Comment on above: Performed By: #### David GRAVES, BMP ####[facility] [address] [address]Dr. Luis Barros Creatinine [Mass/Vol] 0.91 mg/dL Normal 0.55-1.02 [facility] Comment on above: Performed By: #### David GRAVES, BMP ####[facility] [address] [place], [place] [address]Dr. Luis Barros EGFR-AF GAMBIAN >60 Normal >=60 [facility] Comment on above: Performed By: #### David GRAVES, BMP ####[facility] [address] [place], [place] [address]Dr. Luis Barros EGFR-NON AF GAMBIAN >60 Normal >=60 [facility] Comment on above: Performed By: #### David GRAVES, BMP ####[facility] [address] [place], [place] [address]Dr. Luis Barros Glucose [Mass/Vol] 74 mg/dL Normal 74-106 [facility] Comment on above: Performed By: #### David GRAVES, BMP ####[facility] [address] [place], [place] [address]Dr. Luis Barros Potassium [Moles/Vol] 3.5 mmol/L Normal 3.5-5.1 [facility] Comment on above: Performed By: #### David GRAVES, BMP ####[facility] [address] [address]Dr. Luis Barros Sodium [Moles/Vol] 145 mmol/L Normal 136-145 [facility] Comment on above: Performed By: #### David GRAVES, BMP ####[facility] [address] [place], [place] [address]XiMalena Barros Urea nitrogen [Mass/Vol] 20.0 mg/dL Critically high 7.0-18.0 [facility] Comment on above: Performed By: #### C ELY, BMP ####[facility] [address] [place], [place] [address]BlMalena Barros Urea nitrogen/Creatinin e [Mass ratio] 22.0 mg/mg Normal [facility] Comment on above: Performed By: #### C ELY, BMP ####[facility] [address] [place], [place] [address]JcMalena Barros COVID/FLU RT-PCRon 3 SARS-CoV-2 (COVID-19) RNA LES+probe Ql (Unsp spec) Negative [employer] Other COVID/FLU RT-PCR Negative [employer] Other CBC AUTO DIFFon 04-18-2022 BASO # 0.0 103/ul Normal 0.0-0.1 [facility] Comment on above: Performed By: #### C BC #### [facility] [address] [place] [address] Dr. Luis Barros Basophils/100 WBC (Bld) 0.7 % Normal 0.2-2.0 [facility] Comment on above: Performed By: #### C BC #### [facility] [address] [address] [address] Luis Barros EO # 0.3 103/ul Normal 0.0-0.7 [facility] Comment on above: Performed By: #### C BC #### [facility] [id number] Luis Barros Eosinophils/100 WBC (Bld) 4.2 % Normal 0.9-7.0 [facility] Comment on above: Performed By: #### C BC #### [facility] [id number] Luis Barros Erythrocyte distribution width (RBC) [Ratio] 13.0 % Normal 11.0-15.0 [facility] Comment on above: Performed By: #### C BC #### [facility] [address] [place] [address] Dr. Luis Barros Hematocrit (Bld) [Volume fraction] 41.4 % Normal 36.0-48.0 [facility] Comment on above: Performed By: #### C BC #### [facility] [address] [place] [address] Dr. Luis Barros Hemoglobin (Bld) [Mass/Vol] 14.3 g/dL Normal 12.0-16.0 [facility] Comment on above: Performed By: #### C BC #### [facility] [address] [place] [address] Dr. Luis Barros IG # 0.02 10e3/ul Normal 0.00-0.03 [facility] Comment on above: Performed By: #### C BC #### [facility] [address] [place] [address] Dr. Luis Barros IG % 0.3 % Normal 0.0-0.5 [facility] Comment on above: Performed By: #### C BC #### [facility] [address] [place] [address] Dr. Luis Barros LYMPH # 2.4 103/ul Normal 1.2-3.8 [facility] Comment on above: Performed By: #### C BC #### [facility] [address] [place] [address] Dr. Luis Barros Lymphocytes/100 WBC (Bld) 39.1 % Normal 20.5-60.0 [facility] Comment on above: Performed By: #### C BC #### [facility] [address] [place] [address] Dr. Luis Barros MANUAL DIFF REQ NO Normal [facility] Comment on above: Performed By: #### C BC #### [facility] [address] [place] [address] Dr. Luis Barros MCH (RBC) [Entitic mass] 30.2 pg Normal 26.7-34.0 [facility] Comment on above: Performed By: #### C BC #### [facility] [address] [address] [address] Luis Barros MCHC (RBC) [Mass/Vol] 34.5 g/dL Normal 29.9-35.2 [facility] Comment on above: Performed By: #### C BC #### [facility] [address] [place] [address] Dr. Luis Barros MCV (RBC) [Entitic vol] 87.3 fL Normal 81.0-99.0 [facility] Comment on above: Performed By: #### C BC #### [facility] [address] [place] [address] Dr. Luis Barros MONO # 0.4 103/ul Normal 0.3-0.8 [facility] Comment on above: Performed By: #### C BC #### [facility] [address] [place] [address] Dr. Luis Barros Monocytes/100 WBC (Bld) 6.0 % Normal 1.7-12.0 [facility] Comment on above: Performed By: #### C BC #### [facility] [address] [place] [address] Dr. Luis Barros NEUT # 3.0 103/ul Normal 1.4-6.5 [facility] Comment on above: Performed By: #### C BC #### [facility] [address] [place] [address] Dr. Luis Barros Neutrophils/100 WBC (Bld) 49.7 % Normal 43.0-75.0 [facility] Comment on above: Performed By: #### C BC #### [facility] [address] [place] [address] Dr. Luis Barros Platelet mean volume (Bld) [Entitic vol] 9.6 fL Normal 9.5-13.5 [facility] Comment on above: Performed By: #### C BC #### [facility] [address] [place] [address] Dr. Luis Barros PLT 273 103/ul Normal 150-450 [facility] Comment on above: Performed By: #### C BC #### [facility] [address] [place], [place] [address] Dr. Luis Barros RBC 4.74 106/ul Normal 4.20-5.40 [facility] Comment on above: Performed By: #### C BC #### [facility] [address] [place], [place] [address] Dr. Luis Barros WBC 6.0 103/ul Normal 4.0-11.0 [facility] Comment on above: Performed By: #### C BC #### [facility] [address] [place], [place] [address] ABD/PELV W CONon [...] CARINA TONY Date: 2022-04-18 21:36 Normal [facility] ER URINE PROFILEon 2 Bilirubin Ql (U) Negative Normal NEGATIVE [facility] Comment on above: Performed By: #### E RUR, PREGU, UMICRO #### [facility] [address] [address] [address] Luis Barros Clarity (U) CLEAR Normal CLEAR [facility] Comment on above: Performed By: #### E RUR, PREGU, UMICRO #### [facility] [address] [address] [address] Luis Barros Color (U) LT. YELLOW Normal YELLOW [facility] Comment on above: Performed By: #### E RUR, PREGU, UMICRO #### [facility] [address] [address] [address] Luis Barros ERUAHD A micrscopic examination will be performed if indicated. Normal [facility] Comment on above: Performed By: #### E RUR, PREGU, UMICRO #### [facility] [address] [address] [address] Luis Barros Glucose Ql (U) Negative Normal NEGATIVE [facility] Comment on above: Performed By: #### E RUR, PREGU, UMICRO #### [facility] [address] [address] [address] Luis Barros Hemoglobin Ql (U) TRACE-INTACT Abnormal NEGATIVE [facility] Comment on above: Performed By: #### E RUR, PREGU, UMICRO #### [facility] [address] [address] [address] Luis Barros Ketones Ql (U) Negative Normal NEGATIVE [facility] Comment on above: Performed By: #### E RUR, PREGU, UMICRO #### [facility] [address] [address] [address] Luis Barros LEUKOCYTES Negative Normal NEGATIVE [facility] Comment on above: Performed By: #### E RUR, PREGU, UMICRO #### [facility] [address] [address] [address] Luis Barros Nitrite Ql (U) Negative Normal NEGATIVE [facility] Comment on above: Performed By: #### E RUR, PREGU, UMICRO #### [facility] [address] [address] [address] Luis Barros pH (U) 7.5 [pH] Normal 5-9 [facility] Comment on above: Performed By: #### E RUR, PREGU, UMICRO #### [facility] [address] [address] [address] Luis Barros SPEC GRAVITY 1.010 Normal 1.005-<=1.025 [facility] Comment on above: Performed By: #### E RUR, PREGU, UMICRO #### [facility] [address] [address] [address] Luis Barros UA PROTEIN Negative Normal NEGATIVE/ TRACE [facility] Comment on above: Performed By: #### E RUR, PREGU, UMICRO #### [facility] [address] [address] [address] Luis Barros UR MICRO IND INDICATED Normal [facility] Comment on above: Performed By: #### E RUR, PREGU, UMICRO #### [facility] [address] [address] [address] Luis Barros Urobilinogen Qn (U) 0.2 {Marques'U}/dL Normal 0.2 - 1.0 [facility] Comment on above: Performed By: #### E RUR, PREGU, UMICRO #### [facility] [address] [address] [address] Luis Barros LIPASEon 04-18-2022 Lipase [Catalytic activity/Vol] 240.0 U/L Normal 73.0-393.0 [facility] Comment on above: Performed By: #### L IPA, CMP ####[facility] [address] [address]Dr. Luis Barros URon 04-18-2022 , QUAL Negative Normal NEGATIVE [facility] Comment on above: Performed By: #### E SARAH SOLORIOU, UMLISANDRARO #### [facility] [address] [place], [place] [address] Dr. Luis Barros PROF 14(COMP METB)on 022 Albumin [Mass/Vol] 3.7 g/dL Normal 3.4-5.0 [facility] Comment on above: Performed By: #### L IPA, CMP ####[facility] [address] [address]Dr. Luis Barros Albumin/Globulin [Mass ratio] 1.2 {ratio} Normal [facility] Comment on above: Performed By: #### L IPA, CMP ####[facility] [address] [address]Dr. Luis Barros ALP [Catalytic activity/Vol] 53 U/L Normal 46-116 [facility] Comment on above: Performed By: #### L IPA, CMP ####[facility] [address] [address]Dr. Luis Barros ALT [Catalytic activity/Vol] 11 U/L Critically low 14-59 [facility] Comment on above: Performed By: #### L IPA, CMP ####[facility] [address] [address]Dr. Luis Barros Anion gap [Moles/Vol] 6.8 mmol/L Normal [facility] Comment on above: Performed By: #### L IPA, CMP ####[facility] [address] [address]Dr. Luis Barros AST [Catalytic activity/Vol] 14 U/L Critically low 15-37 [facility] Comment on above: Performed By: #### L IPA, CMP ####[facility] [address] [address]Dr. Luis Barros Bilirubin [Mass/Vol] 0.6 mg/dL Normal 0.2-1.0 [facility] Comment on above: Performed By: #### L IPA, CMP ####[facility] [address] [address]Dr. Luis Barros Calcium [Mass/Vol] 8.4 mg/dL Critically low 8.5-10.1 [facility] Comment on above: Performed By: #### L IPA, CMP ####[facility] [address] [address]Dr. Luis Barros Chloride [Moles/Vol] 104 mmol/L Normal 98-107 [facility] Comment on above: Performed By: #### L IPA, CMP ####[facility] [address] [address]Dr. Luis Barros CO2 [Moles/Vol] 30.7 mmol/L Normal 21.0-32.0 [facility] Comment on above: Performed By: #### L IPA, CMP ####[facility] [address] [place], [place] [address]Dr. Luis Barros Creatinine [Mass/Vol] 0.78 mg/dL Normal 0.55-1.02 [facility] Comment on above: Performed By: #### L IPA, CMP ####[facility] [address] [place], [place] [address]Dr. Luis Barros EGFR-AF GAMBIAN >60 Normal >=60 [facility] Comment on above: Performed By: #### L IPA, CMP ####[facility] [address] [place], [place] [address]Dr. Luis Barros EGFR-NON AF GAMBIAN >60 Normal >=60 [facility] Comment on above: Performed By: #### L IPA, CMP ####[facility] [address] [place], [place] [address]Dr. Luis Barros Globulin (S) [Mass/Vol] 3.2 g/dL Normal [facility] Comment on above: Performed By: #### L IPA, CMP ####[facility] [address] [place], [place] [address]Dr. Luis Barros Glucose [Mass/Vol] 91 mg/dL Normal 74-106 [facility] Comment on above: Performed By: #### L IPA, CMP ####[facility] [address] [address]Dr. uLis Barros Potassium [Moles/Vol] 3.5 mmol/L Normal 3.5-5.1 [facility] Comment on above: Performed By: #### L IPA, CMP ####[facility] [address] [address]Dr. Luis Barros Protein [Mass/Vol] 6.9 g/dL Normal 6.4-8.2 [facility] Comment on above: Performed By: #### L IPA, CMP ####[facility] [address] [address]Dr. Luis Barros Sodium [Moles/Vol] 138 mmol/L Normal 136-145 [facility] Comment on above: Performed By: #### L IPA, CMP ####[facility] [address] [place], [place] [address]Dr. Luis Barros Urea nitrogen [Mass/Vol] 10.0 mg/dL Normal 7.0-18.0 [facility] Comment on above: Performed By: #### L IPA, CMP ####[facility] [address] [place], [place] [address]Dr. Luis Barros Urea nitrogen/Creatinin e [Mass ratio] 12.8 mg/mg Normal [facility] Comment on above: Performed By: #### L IPA, CMP ####[facility] [address] [place], [place] [address]Dr. Luis Barros URINE MICROSCOPIC ONLYon BACTERIA TRACE Abnormal NONE SEEN [facility] Comment on above: Performed By: #### E GUSTAVO SOLORIO UMICRO #### [facility] [address] [place] [address] Dr. Luis Barros Bacteria identified Cx Nom (U) NOT INDICATED Normal [facility] Comment on above: Performed By: #### GUSTAVO ALONSO UMICRO #### [facility] [address] [place] [address] Dr. Luis Barros CAST NONE SEEN Normal NONE SEEN [facility] Comment on above: Performed By: #### E OSMIN PREGU, UMICRO #### [facility] [address] [address] [address] Luis Barros Crystals LM Nom (Urine sed) NONE SEEN Normal NONE SEEN [facility] Comment on above: Performed By: #### E RUR, PREGU, UMICRO #### [facility] [address] [address] [address] Luis Barros Epithelial cells LM Ql (Urine sed) RARE Normal NONE SEEN /RARE [facility] Comment on above: Performed By: #### E RUR, PREGU, UMICRO #### [facility] [address] [address] [address] Luis Barros MUCOUS NONE SEEN Normal NONE SEEN [facility] Comment on above: Performed By: #### E RUR, PREGU, UMICRO #### [facility] [address] [place] [address] Dr. Luis Barros RBC NONE SEEN Abnormal 0-2 [facility] Comment on above: Performed By: #### E RUR, PREGU, UMICRO #### [facility] [address] [address] [address] Luis Barros WBC NONE SEEN Normal NONE SEEN [facility] Comment on above: Performed By: #### E RUR, PREGU, UMICRO #### [facility] [address] [address] [address] Luis Barros XR HAND LT MIN [...] DEL RIO Date: 2022-02-28 00:17 Normal [facility] XR HAND LT MIN 3Von 02-12-20 22 XR HAND LT MIN 3V EXAM: XR HAND LT MIN 3V HISTORY: Pain following fall COMPARISON: None. TECHNIQUE: 3 views FINDINGS: No osseous lesion, fracture, dislocation or subluxation. Joint spaces are normal. No visualized effusion. No visualized soft tissue edema. IMPRESSION: Normal x-rays Electronically authenticated by: HEATHER MONTEZ Date: 2022-02-11 15:25 Normal [facility] CBC AUTO DIFFon 10-18-2021 BASO # 0.0 103/ul Normal 0.0-0.1 [facility] Comment on above: Performed By: #### C BC ####[facility] [address] [address]Dr. Luis Barros Basophils/100 WBC (Bld) 0.5 % Normal 0.2-2.0 [facility] Comment on above: Performed By: #### C BC ####[facility] [address] [place], [place] [address]Dr. Luis Barros EO # 0.2 103/ul Normal 0.0-0.7 [facility] Comment on above: Performed By: #### C BC ####[facility] [address] [place], [place] [address]Dr. Luis Barros Eosinophils/100 WBC (Bld) 2.6 % Normal 0.9-7.0 [facility] Comment on above: Performed By: #### C BC ####[facility] [address] [place], [place] [address]Dr. Luis Barros Erythrocyte distribution width (RBC) [Ratio] 13.1 % Normal 11.0-15.0 [facility] Comment on above: Performed By: #### C BC ####[facility] [address] [place], [place] [address]Dr. Luis Barros Hematocrit (Bld) [Volume fraction] 41.4 % Normal 36.0-48.0 [facility] Comment on above: Performed By: #### C BC ####[facility] [address] [place], [place] [address]Dr. Luis Barros Hemoglobin (Bld) [Mass/Vol] 14.5 g/dL Normal 12.0-16.0 [facility] Comment on above: Performed By: #### C BC ####[facility] [address] [place], [place] [address]DrMalena Barros IG # 0.02 10e3/ul Normal 0.00-0.03 [facility] Comment on above: Performed By: #### C BC ####[facility] [address] [address]DrMalena Barros IG % 0.3 % Normal 0.0-0.5 [facility] Comment on above: Performed By: #### C BC ####[facility] [address] [address]DrMalena Barros LYMPH # 2.0 103/ul Normal 1.2-3.8 [facility] Comment on above: Performed By: #### C BC ####[facility] [address] [place], [place] [address]DrMalena Barros Lymphocytes/100 WBC (Bld) 33.2 % Normal 20.5-60.0 [facility] Comment on above: Performed By: #### C BC ####[facility] [address] [place], [place] [address]DrMalena Barros MANUAL DIFF REQ NO Normal [facility] Comment on above: Performed By: #### C BC ####[facility] [address] [place], [place] [address]DrMalena Barros MCH (RBC) [Entitic mass] 30.1 pg Normal 26.7-34.0 [facility] Comment on above: Performed By: #### C BC ####[facility] [address] [place], [place] [address]DrMalena Barros MCHC (RBC) [Mass/Vol] 35.0 g/dL Normal 29.9-35.2 [facility] Comment on above: Performed By: #### C BC ####[facility] [address] [place], [place] [address]DrMalena Barros MCV (RBC) [Entitic vol] 86.1 fL Normal 81.0-99.0 [facility] Comment on above: Performed By: #### C BC ####[facility] [address] [place], [place] [address]DrMalena Barros MONO # 0.4 103/ul Normal 0.3-0.8 [facility] Comment on above: Performed By: #### C BC ####[facility] [address] [address]Dr. Luis Barros Monocytes/100 WBC (Bld) 6.0 % Normal 1.7-12.0 [facility] Comment on above: Performed By: #### C BC ####[facility] [address] [place], [place] [address]Dr. Luis Barros NEUT # 3.5 103/ul Normal 1.4-6.5 [facility] Comment on above: Performed By: #### C BC ####[facility] [address] [address]Dr. Luis Barros Neutrophils/100 WBC (Bld) 57.4 % Normal 43.0-75.0 [facility] Comment on above: Performed By: #### C BC ####[facility] [address] [place], [place] [address]Dr. Luis Barros Platelet mean volume (Bld) [Entitic vol] 9.7 fL Normal 9.5-13.5 [facility] Comment on above: Performed By: #### C BC ####[facility] [address] [place], [place] [address]Dr. Luis Barros PLT 267 103/ul Normal 150-450 [facility] Comment on above: Performed By: #### C BC ####[facility] [address] [place], [place] [address]Dr. Luis Barros RBC 4.81 106/ul Normal 4.20-5.40 [facility] Comment on above: Performed By: #### C BC ####[facility] [address] [place], [place] [address]Dr. Luis Barros WBC 6.1 103/ul Normal 4.0-11.0 [facility] Comment on above: Performed By: #### C BC ####[facility] [address] [place], [place] [address]Dr. Luis Barros CT PELVIS WO CONon 2 [...] JOSELINE AZAR Date: 2021-10-18 09:18 Normal [facility] PROF CHEM 8 (BAS METB)on Anion gap [Moles/Vol] 12.8 mmol/L Normal [facility] Comment on above: Performed By: #### B MP #### [facility] [address] [place] [address] Dr. Luis Barros Calcium [Mass/Vol] 8.8 mg/dL Normal 8.5-10.1 [facility] Comment on above: Performed By: #### B MP #### [facility] [address] [address] [address] Luis Barros Chloride [Moles/Vol] 103 mmol/L Normal 98-107 [facility] Comment on above: Performed By: #### B MP #### [facility] [address] [address] [address] Luis Barros CO2 [Moles/Vol] 27.6 mmol/L Normal 21.0-32.0 [facility] Comment on above: Performed By: #### B MP #### [facility] [address] [address] [address] Luis Barros Creatinine [Mass/Vol] 0.76 mg/dL Normal 0.55-1.02 [facility] Comment on above: Performed By: #### B MP #### [facility] [address] [address] [address] Luis Barros EGFR-AF GAMBIAN >60 Normal >=60 [facility] Comment on above: Performed By: #### B MP #### [facility] [address] [address] [address] Luis Barros EGFR-NON AF GAMBIAN >60 Normal >=60 [facility] Comment on above: Performed By: #### B MP #### [facility] [address] [address] [address] Luis Barros Glucose [Mass/Vol] 120 mg/dL Critically high 74-106 [facility] Comment on above: Performed By: #### B MP #### [facility] [address] [place] [address] Dr. Luis Barros Potassium [Moles/Vol] 3.4 mmol/L Critically low 3.5-5.1 [facility] Comment on above: Performed By: #### B MP #### [facility] [address] [address] [address] Luis Barros Sodium [Moles/Vol] 140 mmol/L Normal 136-145 [facility] Comment on above: Performed By: #### B MP #### [facility] [address] [address] [address] Luis Barros Urea nitrogen [Mass/Vol] 9.0 mg/dL Normal 7.0-18.0 [facility] Comment on above: Performed By: #### B MP #### [facility] [address] [address] [address] Luis Barros Urea nitrogen/Creatinin e [Mass ratio] 11.8 mg/mg Normal [facility] Comment on above: Performed By: #### B MP #### [facility] [address] [address] [address] Luis Barros PAP, THIN PREP WITH IMAGINGo n 05-18-2019 PAP, THIN PREP WITH IMAGING Normal [facility] Comment on above: Result Comment: Marlene coles Cytologic Interpretation ThinPrep Pap Test (Cervical): Satisfactory for evaluation. A transformation zone component is present. NEGATIVE FOR INTRAEPITHELIAL LESION OR MALIGNANCY. [facility]/05/18/2019 Interpretation performed at [facility], [address] [place] [address], License number: [id number]. Electronically Signed Out By VERÓNICA Howell(ASCP) Date of Last Menstrual Period: 05/13/19 Other Clinical Conditions: Z12.4 Screenings for malignant neoplasm of cervix Z11.51 Screening for HPV Z11.3 Encntr screen for infections w sexl mode of transmiss Source of Specimen ThinPrep Pap Test (Cervical) Thin Prep Pap (CAR SUPERVISOR) Fee Code(s): G0145 The Pap test is a screening test with an inherent, but low, probability of error. The Pap test is primarily effective for the diagnosis and prevention of squamous cell carcinoma. Regular screening is critical for prevention. ThinPrep liquid-based slides, which meet the Compound Filler criteria for automated screening, have been screened by the ThinPrep Imaging System (as of 01/11/07) along with an additional manual rescreening by a group leader semiconductor testing and, if indicated, by a pathologist. [facility] [address] [place] [address] CLIA No. [id number] CAP Accreditation No. [id number] Form Block Maker: Bijan Perkins M.D. CHLAMYDIA/N. GONORRHOEAE/T. VAGINALIS, AMPLIFIED PROBE (TP)on 05-17-2019 CHLAM TRACHOMATIS rRNA Negative Normal Negative [facility] NEISS GONORRHOEAE rRNA Negative Normal Negative [facility] SOURCE: CERVIX Normal [facility] TRICH VAGINALIS rRNA Negative Normal Negative [facility] Comment on above: Result Comment: NOTE Assay methodology is nucleic acid amplification by blow mold technician mediated amplification (TMA) utilizing the AptRelatient Combo 2 Assay. Performed at [facility] [address] [place] [id number] HPV-HR BY TMA, REFLEX 16 AND 18/45on [...] 70 and 82 may occur. Performed at [facility] [address] [address] SOURCE CERVIX Normal [facility] XR [...] #### C BC, BHARATH, LIP, CMPX #### [facility] [address] [facility] [place] [address] Program Clerk: Padilla Calero MD Basic Metabolic Profon 06-26 (cont.) Normal [facility] Comment on above: Result Comment: Aver age GFR for 30-39 years old: 107 mL/min/1.73sq m Chronic Kidney Disease: <60 mL/min/1.73sq m Kidney failure: <15 mL/min/1.73sq m eGFR calculated using average adult body mass. Additional eGFR calculator available at: http://www.[employer]Honestly Now/multiple_crcl_2012.htm Performed By: #### C BC, BHARATH, LIP, CMPX #### [facility] [address] [place] [address] Program Clerk: Padilla Calero MD Anion gap [Moles/Vol] 12 mmol/L Normal 9-17 [facility] Comment on above: Performed By: #### C BC, BHARATH, LIP, CMPX #### [facility] [address] [place] [address] Program Clerk: Padilla Calero MD BUN/CRE Ratio 24 High 9-20 [facility] Comment on above: Performed By: #### C BC, BHARATH, LIP, CMPX #### [facility] [address] [facility] [place] [address] Program Clerk: Padilla Calero MD Calcium [Mass/Vol] 8.8 mg/dL Normal 8.6-10.4 [facility] Comment on above: Performed By: #### C BC, BHARATH, LIP, CMPX #### [facility] [address] [place] [address] Program Clerk: Padilla Calero MD Chloride [Moles/Vol] 101 mmol/L Normal 98-107 [facility] Comment on above: Performed By: #### C BC, BHARATH, LIP, CMPX #### [facility] [address] [facility] [place] [address] Program Clerk: Padilla Calero MD CO2 [Moles/Vol] 24 mmol/L Normal 20-31 [facility] Comment on above: Performed By: #### C BC, BHARATH, LIP, CMPX #### [facility] [address] [facility] [place] [address] Program Clerk: Padilla Calero MD Creatinine [Mass/Vol] 0.66 mg/dL Normal 0.50-0.90 [facility] Comment on above: Performed By: #### C BC, BHARATH, LIP, CMPX #### [facility] [address] [place] [address] Program Clerk: Padilla Calero MD GFR, Amer >60 Normal >60 [facility] Comment on above: Performed By: #### C BC, BHARATH, LIP, CMPX #### [facility] [address] [place] [address] Program Clerk: Padilla Calero MD GFR,non Amer >60 Normal >60 [facility] Comment on above: Performed By: #### C BC, BHARATH, LIP, CMPX #### [facility] [address] [place] [address] Program Clerk: Padilla Calero MD Glucose [Mass/Vol] 106 mg/dL High 70-99 [facility] Comment on above: Performed By: #### C BC, BHARATH, LIP, CMPX #### [facility] [address] [place] [address] Program Clerk: Padilla Calero MD Potassium [Moles/Vol] 3.8 mmol/L Normal 3.7-5.3 [facility] Comment on above: Performed By: #### C BC, BHARATH, LIP, CMPX #### [facility] [address] [place] [address] Program Clerk: Padilla Calero MD Sodium [Moles/Vol] 137 mmol/L Normal 135-144 [facility] Comment on above: Performed By: #### C BC, BHARATH, LIP, CMPX #### [facility] [place] [address] Program Clerk: Padilla Calero MD Urea nitrogen [Mass/Vol] 16 mg/dL Normal 6-20 [facility] Comment on above: Performed By: #### C BC, BHARATH, LIP, CMPX #### [facility] [address] [facility] [place] [address] Program Clerk: Padilla Calero MD Staging: NOT REPORTED Normal [facility] Comment on above: Performed By: #### C BC, BHARATH, LIP, CMPX #### [facility] [facility] [place] [address] Program Clerk: Padilla Calero MD CBC with Diffon 06-26-2018 Abs. Basophil 0.00 k/uL Normal 0.0-0.2 [facility] Comment on above: Performed By: #### C DP, BMP, LIP, DIFE #### [facility] [address] [place] [address]. [place] [address] Program Clerk: Padilla Calero MD Abs.Neutrophil (Seg) 8.70 k/uL High 1.8-7.7 [facility] Comment on above: Performed By: #### C DP, BMP, LIP, DIFE #### [facility] [address] [place] [address]. [place] [address] Program Clerk: Padilla Calero MD Basophils/100 WBC (Bld) 0 % Normal 0-2 [facility] Comment on above: Performed By: #### C DP, BMP, LIP, DIFE #### [facility] [address] [place] [address]. [place] [address] Program Clerk: Padilla Calero MD Eosinophils (Bld) [#/Vol] 0.00 10*3/uL Normal 0.0-0.4 [facility] Comment on above: Performed By: #### C DP, BMP, LIP, DIFE #### [facility] [address] [place] [address]. [place] [address] Program Clerk: Padilla Calero MD Eosinophils/100 WBC (Bld) 0 % Low 1-4 [facility] Comment on above: Performed By: #### C DP, BMP, LIP, DIFE #### [facility] [address] [place] [address] Program Clerk: Padilla Calero MD Erythrocyte distribution width (RBC) [Ratio] 13.4 % Normal 11.5-14.5 [facility] Comment on above: Performed By: #### C DP, BMP, LIP, DIFE #### [facility] [address] [place] [address] Program Clerk: Padilla Calero MD Hematocrit (Bld) [Volume fraction] 41.9 % Normal 36-46 [facility] Comment on above: Performed By: #### C DP, BMP, LIP, DIFE #### [facility] [address] [place], [place] [address] [place] [address] Program Clerk: Padilla Calero MD Hemoglobin (Bld) [Mass/Vol] 14.3 g/dL Normal 12.0-16.0 [facility] Comment on above: Performed By: #### C DP, BMP, LIP, DIFE #### [facility] [address] [place], [place] [address] [facility] [place] [address] Program Clerk: Padilla Calreo MD Lymphocytes (Bld) [#/Vol] 1.10 10*3/uL Normal 1.0-4.8 [facility] Comment on above: Performed By: #### C DP, BMP, LIP, DIFE #### [facility] [place] [address] Program Clerk: Padilla Calero MD Lymphocytes/100 WBC (Bld) 11 % Low 24-44 [facility] Comment on above: Performed By: #### C DP, BMP, LIP, DIFE #### [facility] [place] [address] Program Clerk: Padilla Calero MD MCH (RBC) [Entitic mass] 29.4 pg Normal 26-34 [facility] Comment on above: Performed By: #### C DP, BMP, LIP, DIFE #### [facility] [address] [facility] [place] [address] Program Clerk: Padilla Calero MD MCHC (RBC) [Mass/Vol] 34.2 g/dL Normal 31-37 [facility] Comment on above: Performed By: #### C DP, BMP, LIP, DIFE #### [facility] [address] [place] [address]. [place] [address] Program Clerk: Padilla Calero MD MCV (RBC) [Entitic vol] 86.0 fL Normal 80-100 [facility] Comment on above: Performed By: #### C DP, BMP, LIP, DIFE #### [facility] [facility] [place] [address] Program Clerk: Padilla Calero MD Monocytes (Bld) [#/Vol] 0.40 10*3/uL Normal 0.2-0.8 [facility] Comment on above: Performed By: #### C DP, BMP, LIP, DIFE #### [facility] [address] [place] [address]. [place] [address] Program Clerk: Padilla Calero MD Monocytes/100 WBC (Bld) 4 % Normal 1-7 [facility] Comment on above: Performed By: #### C DP, BMP, LIP, DIFE #### [facility] [address] [place] [address]. [place] [address] Program Clerk: Padilla Calero MD Neutrophil (Seg) 85 % High 36-66 [facility] Comment on above: Performed By: #### C DP, BMP, LIP, DIFE #### [facility] [address] [place] [address] Program Clerk: Padilla Calero MD Platelet mean volume (Bld) [Entitic vol] 8.1 fL Normal 6.0-12.0 [facility] Comment on above: Performed By: #### C DP, BMP, LIP, DIFE #### [facility] [address] [place] [address] Program Clerk: Padilla Calero MD Platelets (Bld) [#/Vol] 275 10*3/uL Normal 130-400 [facility] Comment on above: Performed By: #### C DP, BMP, LIP, DIFE #### [facility] [address] [facility] [place] [address] Program Clerk: Padilla Calero MD RBC (Bld) [#/Vol] 4.87 10*6/uL Normal 4.0-5.2 [facility] Comment on above: Performed By: #### C DP, BMP, LIP, DIFE #### [facility] [facility] [place] [address] Program Clerk: Padilla Calero MD WBC (Bld) [#/Vol] 10.3 10*3/uL Normal 3.5-11.0 [facility] Comment on above: Performed By: #### C DP, BMP, LIP, DIFE #### [facility] [address] [facility] [place] [address] Program Clerk: Padilla Calero MD Abs.Imm.Granulocyt e NOT REPORTED Normal 0.00-0.30 [facility] Comment on above: Performed By: #### C DP, BMP, LIP, DIFE #### [facility] [place] [address] Program Clerk: Padilla Calero MD Auto Diff Performed NOT REPORTED Normal [facility] Comment on above: Performed By: #### C DP, BMP, LIP, DIFE #### [facility] [facility] [place] [address] Program Clerk: Padilla Calero MD Immature granulocytes (Bld) [#/Vol] NOT REPORTED Normal 0 [facility] Comment on above: Performed By: #### C DP, BMP, LIP, DIFE #### [facility] [facility] [place] [address] Program Clerk: Padilla Calero MD NRBC Automated NOT REPORTED Normal [facility] Comment on above: Performed By: #### C DP, BMP, LIP, DIFE #### [facility] [address] [place] [address]. [place] [address] Program Clerk: Padilla Calero MD Platelets (Bld) [#/Vol] NOT REPORTED Normal [facility] Comment on above: Performed By: #### C DP, BMP, LIP, DIFE #### [facility] [address] [place] [address]. [place] [address] Program Clerk: Padilla Calero MD RBC morphology finding Nom (Bld) NOT REPORTED Normal [facility] Comment on above: Performed By: #### C DP, BMP, LIP, DIFE #### [facility] [address] [place] [address]. [place] [address] Program Clerk: Padilla Calero MD WBC Morphology NOT REPORTED Normal [facility] Comment on above: Performed By: #### C DP, BMP, LIP, DIFE #### [facility] [address] [place] [address]. [place] [address] Program Clerk: Padilla Calero MD Diff Methodon 06-26-2018 Diff Method AUTO Normal [facility] Comment on above: Performed By: #### C DP, BMP, LIP, DIFE #### [facility] [address] [facility] [place] [address] Program Clerk: Padilla Calero MD Lipaseon 06-26-2018 Lipase [Catalytic activity/Vol] 37 U/L Normal 13-60 [facility] Comment on above: Performed By: #### C BC, BHARATH, LIP, CMPX #### [facility] [facility] [place] [address] Program Clerk: Padilla Calero MD Urinalysis, Routineon 2018 Acetoacetic Acid,Ur Negative Normal NEG [facility] Comment on above: Performed By: #### C BC, BHARATH, LIP, CMPX #### [facility] [address] [place] [address]. [place] [address] Program Clerk: Padilla Calero MD Bilirubin, SemiQt,Ur Negative Normal NEG [facility] Comment on above: Performed By: #### C BC, BHARATH, LIP, CMPX #### [facility] [address] [place] [address]. [place] [address] Program Clerk: Padilla Calero MD Color (U) YELLOW Normal YEL [facility] Comment on above: Performed By: #### C BC, BHARATH, LIP, CMPX #### [facility] [facility] [place] [address] Program Clerk: Padilla Calero MD Glucose Ql (U) Negative Normal NEG [facility] Comment on above: Performed By: #### C BC, BHARATH, LIP, CMPX #### [facility] [facility] [place] [address] Program Clerk: Padilla Calero MD Hemoglobin, Ur Negative Normal NEG [facility] Comment on above: Performed By: #### C BC, BHARATH, LIP, CMPX #### [facility] [address] [facility] [place] [address] Program Clerk: Padilla Calero MD Leukocyte esterase Test strip Ql (U) Negative Normal NEG [facility] Comment on above: Performed By: #### C BC, BHARATH, LIP, CMPX #### [facility] [address] [place] [address]. [place] [address] Program Clerk: Padilla Calero MD Nitrite,Ur Negative Normal NEG [facility] Comment on above: Performed By: #### C BC, BHARATH, LIP, CMPX #### [facility] [address] [place] [address]. [place] [address] Program Clerk: Padilla Calero MD pH (U) 7.5 [pH] Normal 5.0-8.0 [facility] Comment on above: Performed By: #### C BC, BHARATH, LIP, CMPX #### [facility] [address] [place] [address]. [place] [address] Program Clerk: Padilla Calero MD Protein Ql (U) TRACE Abnormal NEG [facility] Comment on above: Performed By: #### C BC, BHARATH, LIP, CMPX #### [facility] [address] [place] [address]. [place] [address] Program Clerk: Padilla Calero MD Specific gravity (U) [Rel density] 1.015 Normal 1.005-1.030 [facility] Comment on above: Performed By: #### C BC, BHARATH, LIP, CMPX #### [facility] [facility] [place] [address] Program Clerk: Padilla Calero MD Turbidity CLOUDY Abnormal CLEAR [facility] Comment on above: Performed By: #### C BC, BHARATH, LIP, CMPX #### [facility] [address] [place] [address]. [place] [address] Program Clerk: Padilla Calero MD Urobilinogen,Ur Normal Normal NORM [facility] Comment on above: Performed By: #### C BC, BHARATH, LIP, CMPX #### [facility] [address] [place] [address]. [place] [address] Program Clerk: Padilla Calero MD Comment NOT REPORTED Normal [facility] Comment on above: Performed By: #### C BC, BHARATH, LIP, CMPX #### [facility] [address] [place] [address]. [place] [address] Program Clerk: Padilla Calero MD Urinalysis,Microon 9 ----- Normal [facility] Comment on above: Performed By: #### C BC, BHARATH, LIP, CMPX #### [facility] [address] [place] [address]. [place] [address] Program Clerk: Padilla Calero MD Amorphous sediment LM Ql (Urine sed) 4+ Abnormal [facility] Comment on above: Performed By: #### C BC, BHARATH, LIP, CMPX #### [facility] [address] [place] [address]. [place] [address] Program Clerk: Padilla Calero MD Epithelial cells LM.HPF (Urine sed) [#/Area] 5 TO 10 Normal 0-5 [facility] Comment on above: Performed By: #### C BC, BHARATH, LIP, CMPX #### [facility] [address] [place] [address]. [place] [address] Program Clerk: Padilla Calero MD Mucus Strands 1+ Abnormal [facility] Comment on above: Performed By: #### C BC, BHARATH, LIP, CMPX #### [facility] [address] [facility] [place] [address] Program Clerk: Padilla Calero MD RBC (U) [#/Vol] 0 TO 2 Normal 0-2 [facility] Comment on above: Performed By: #### C BC, BHARATH, LIP, CMPX #### [facility] [facility] [place] [address] Program Clerk: Padilla Calero MD WBC (U) [#/Vol] 2 TO 5 Normal 0-5 [facility] Comment on above: Performed By: #### C BC, BHARATH, LIP, CMPX #### [facility] [address] [place] [address]. [place] [address] Program Clerk: Padilla Calero MD Bacteria LM.HPF (Urine sed) [#/Area] NOT REPORTED Normal [facility] Comment on above: Performed By: #### C BC, BHARATH, LIP, CMPX #### [facility] [address] [place] [address]. [place] [address] Program Clerk: Padilla Calero MD Casts LM.LPF (Urine sed) [#/Area] NOT REPORTED Normal [facility] Comment on above: Performed By: #### C BC, BHARATH, LIP, CMPX #### [facility] [address] [place] [address]. [place] [address] Program Clerk: Padilla Calero MD Crystals LM Nom (Urine sed) NOT REPORTED Normal [facility] Comment on above: Performed By: #### C BC, BHARATH, LIP, CMPX ####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 infections of unspecified site Additional Source Comments INFORMATION SOURCE (unrecogn ized section and content) DATE CREATED AUTHOR 10/31/2018 [facility] DATE CREATED AUTHOR AUTHOR'S ORGANIZ ATION 05/18/2019 [facility] DATE CREATED AUTHOR AUTHOR'S ORGANIZ ATION [facility]2022 [facility] DATE CREATED AUTHOR AUTHOR'S ORGANIZ ATION 05/13/2023 [facility] DATE CREATED AUTHOR AUTHOR'S ORGANIZ ATION 05/08/2024 [facility] Reason for Visit (unrecogniz ed section and content) Reason Comments Influenza patient c/o flu like symptoms since yamilet to include cough fevers body aches Reason Comments Vomiting Flu like symptoms si nce Thursday Reason Comments Pharyngitis Ordered Prescriptions (unrec ognized section and content) Prescription Sig Dispensed Refills Start Date End Da te sodium chloride (OCEAN) 0.65 % nasal spray 1 spray by Nasal route as needed for Congestion 88 mL 05/02/2024 ibuprofen (ADVIL;MOTRIN) 600 MG tablet Take 1 tablet by mouth 3 times daily as needed for Pain 30 tablet 05/02/2024 brompheniramine-pseudoeph edrine-DM 2-30-10 MG/5ML syrup Take 5 mLs by mouth 4 times daily as needed for Congestion or Cough 118 mL 05/02/2024 ondansetron (ZOFRAN-ODT) 4 MG disintegrating tablet Take 1 tablet by mouth 3 times daily as needed for Nausea or Vomiting 5 tablet 05/02/2024 Prescription Sig Dispensed Refills Start Date End Da te Magic Mouthwash (MIRACLE MOUTHWASH) Swish, gargle and swallow 5-10 mL every 2-3 hours as needed for pain. (Lidocaine 2% viscous solution, Benadryl liquid, Maalox) in a 1-1-1 mixture. 90 mL 0 12/03/2023 FOR RECORDS PERTAINING TO PATIENTS WHO ARE [...] BE BASED ON THE PRIMARY CLINICAL RECORDS. [email or web address] provides no warranty or guarantee of the accuracy or completeness of information in this document.
[2024-06-04] MEDS: KETOROLAC TROMETHAMINE 10 MG TABLET PO (16:31)
[2024-06-04] MEDS: METHOCARBAMOL 500 MG TABLET 1000 MG PO (16:31)
== END 2024-06-04 16:35 | disposition home or self-care (01) ==
PROVIDERS: Emergency Provider Emergency Medicine
DX: M25.511 Pain in right shoulder (principal); M79.18 Myalgia, other site
CPT/HCPCS: 73030; 99283

== ENCOUNTER 2024-10-20 12:48 | Emergency (ER) | payer OTHER, SELFPAY ==
--- OUTSIDE RECORDS SUMMARY | 2024-07-18 05:00 | XMS_ITS ---
Author Organization [facility] Address [address] [place] [address] Care Team Providers Care Timber Feller Name Role Phone Scottie Nelson Unavailable [phone] REASON FOR VISIT right shoulder recheck Encounters Encounter Location Date Provider Diagnosis [facility] [address] [place] [address] [place] [address] 07/18/2024 Scottie Nelson Plan Of Treatment No Information Progress Notes * ROLY CHAODOB:1985 (39 yo F)Acc No.[id number]:07/18/2024 Patient: David JUNIEROLY Provider: Feli Nelson MD :1985 A ge:39 Y S ex:Female Date:07/18/2024 Address:[address] [place], [place] [id number] Subjective: * Chief Complaints: * 1 . Right shoulder recheck. * Medical History: Objective: * Vitals: Assessment: Plan: * Treatment: Forms: * Images: * Electronic signature of See Nelson MD on 10/20/2024 at 12:57 PM EDT Sign off status: Pending * Provider: Feli Nelson MD Date: 07/18/2024 Generated for Taj gibbs/Fathaddeus/eTransmitting on: 0 10/20/2024 12:57 PM EDT
[2024-10-20 12:52] VITALS: BP 106/73; PULSE 93; TEMP 36.5; O2SAT 100
--- OUTSIDE RECORDS SUMMARY | 2024-10-20 12:58 | XMS_ITS | Patient Health Record ---
Author Organization [facility] Address [address] [place] [address] Care Team Providers Care Business Analyst [employer] Name Role Phone Scottie Nelson Unavailable [phone] xxOdilia Bhardwaj Unavailable Allergies No Known Allergies Reason For Referral No Information Social History Tobacco Use: Social History Observation Description Date Details (start date - stop date) Current Smoker NA - NA AUDIT-C (Standard) Question Answer Notes Did you have a drink containing alcohol in the p ast year? No Points 0 Interpretation Negative Tobacco Control (Standard) Question Answer Notes Tobacco use: Current smoker Vital Signs Height 5' in 06/06/2024 Weight 150 lbs 06/06/2024 BMI 29.29 06/06/2024 Encounters Encounter Location Date Provider Diagnosis [facility] [address] [place] [address] [place] [address] 06/06/2024 [facility] Right rotator cuff tendinitis M75.81 Assessments Encounter Date Diagnosis (ICD Code) Assessment Notes Treatment Notes Treatment Clinical Notes Section Notes 06/06/2024 Right rotator cuff tendinitis (ICD-10 - M75.81) 06/06/2024 Other Today I discuss ed with patient that her symptoms seem consistent with tendinitis/bursiti s at this point and we discussed risk/benefits of a corticosteroid injection as that has been a few months of persistent pain despite conservative treatment. Patient wished to proceed and I did provide her with a subacromial corticosteroid injection. We also discussed activity modification. We will see her back in 6 weeks for reevaluation. Plan Of Treatment No Information Insurance Providers Payer Name Payer Address Payer Phone Subscriber Number Group Number Insured Name Patient Relationship to Insured Coverage Start Date Coverage End Date Medicaid [place] [address] [facility] [place] [phone] [id number] ROLY CHAO Self - patient is the insured Medications Administered Medication Instructions Date of Administration Dosage Notes BUPIVACAINE 06/06/2024 2 mL Depo-Medrol 06/06/2024 1 mL lidocaine 06/06/2024 2 mL
--- OUTSIDE RECORDS SUMMARY | 2024-10-20 12:58 | XMS_ITS | Clinical Summary ---
Author Organization [employer] [facility] Address [id number] [address] [place] [address] Care Team Providers Care Farebox Repairer Name Role Phone No Pcp, No Pcp Primary Care Provider Unavailabl e Allergies No known active allergies Medications fluticasone (FLONASE) 50 mcg/actuation nasal spray Administer 1 spray into each nostril daily. 9.9 mL 9 Active methylPREDNISol one (MEDROL DOSEPACK) 4 mg tablet follow package directions 21 tablet 9 Active azithromycin (ZITHROMAX Z-AIRAM) 250 mg tablet Take 2 tablets the first day then 1 tablet every day for 4 days. 6 tablet 9 Active lidocaine (LIDODERM) 5 % Place 1 patch on the skin daily as needed for pain (pain) for up to 15 doses. Remove & Discard patch within 12 hours or as directed by MD 15 patch 3 Active cyclobenzaprine (FLEXERIL) 10 mg tablet Take 0.5 tablets (5 mg total) by mouth 2 (two) times a day as needed for muscle spasms. 20 tablet 3 Active Social History Tobacco Use Types Packs/Day Years Used Date Smoking Tobacco: Every Day Cigarettes 1 13 Smokeless Tobacco: Never Alcohol Use Standard Drinks/Week Comments Yes 0 (1 standard drink = 0.6 oz pur e alcohol) rarely Childcare Answer Date Recorded Childcare Unknown 09/24/2018 Employment Answer Date Recorded Employment Unknown 09/24/2018 Hunger Screening Answer Date Recorded Within the past 12 months we worried whether our food would run out before we got money to buy more. Never True 06/15/2022 Within the past 12 months th e food we bought just didn't last and we didn't have money to get more. Never True 06/15/2022 Purpose - Life Answer Date Recorded Purpose and direction in life Unknown Comments No Sex and Gender Information Value Date Recorded Sex Assigned at Not on file Legal Sex Female 9:08 PM EDT Gender Identity Not on file Sexual Orientation Not on file Last Filed Vital Signs Vital Sign Reading Time Taken Comments Blood Pressure 109/66 08/25/2022 9:40 PM EDT Pulse 92 08/25/2022 9:40 PM EDT Temperature 37.1 C (98.7 F) 08/25/2022 9:44 PM EDT Respiratory Rate 18 08/25/2022 9:40 PM EDT Oxygen Saturation 100% 08/25/2022 9:40 PM EDT Inhaled Oxygen Concentration - - Weight 68 kg (150 lb) 08/25/2022 9:40 PM EDT Height 152.4 cm (5') 08/25/2022 9:40 PM EDT Body Mass Index 29.29 08/25/2022 9:40 PM EDT Plan of Treatment Health Maintenance Due Date Last Done Comments Depression Screening 1999 Tobacco Screening 1999 DTaP,Tdap and Td Vaccines (1 - Tdap) 2006 Pap Smear 2008 Adult BMI Screening 08/26/2023 08/25/2022 Influenza Vaccine 12/26/2024 01/18/2011, 02/14/2009 Medical Devices Not on file Insurance [facility] MEDICAID Care Teams Farebox Repairer Relationship Specialty Start Date End Date No Pcp, [place] [id number] PCP - General 08/13/13
--- OUTSIDE RECORDS SUMMARY | 2024-10-20 12:58 | XMS_ITS | Clinical Summary ---
Author Organization [facility] Address [address] [place] [address] Care Team Providers Care Radiology Asst Name Role Phone Unavailable Primary Care Provider Unavailabl e Allergies No known active allergies Medications FeroSul 325 (65 Fe) MG tablet Take 1 tablet by mouth in the morning and 1 tablet before bedtime. 3 Active naproxen (Naprosyn) 500 MG tablet TAKE 1 TABLET BY MOUTH EVERY 12 HOURS WITH FOOD NEEDED FOR PAIN 3 Active dicyclomine (Bentyl) 20 MG tablet TAKE 1 TABLET BY MOUTH FOUR TIMES DAILY NEEDED FOR ABDOMINAL PAIN or discomfort 3 Active Family History Relation Name Status Comments Father Alive Mother Alive Social History Tobacco Use Types Packs/Day Years Used Date Smoking Tobacco: Every Day Cigarettes Tobacco Cessation:Ready to Q uit: Not Asked; Counseling Given: Not Answered Alcohol Use Standard Drinks/Week Comments Yes 0 (1 standard drink = 0.6 oz pur e alcohol) monthly or less Comments Unknown Sex and Gender Information Value Date Recorded Sex Assigned at Female 05/04/2023 8:00 PM EST Legal Sex Female 7:25 PM EDT Gender Identity Female 05/04/2023 8:00 PM EST Sexual Orientation Not on file Last Filed Vital Signs Vital Sign Reading Time Taken Comments Blood Pressure 122/70 05/12/2023 8:49 AM EST Pulse - - Temperature - - Respiratory Rate - - Oxygen Saturation - - Inhaled Oxygen Concentration - - Weight 68.1 kg (150 lb 1.9 oz) 05/12/2023 8:49 A M EST Height - - Body Mass Index - - Plan of Treatment Not on file Insurance [employer]
--- NOTE | 2024-10-20 13:00 | ED_ITS ---
HPI HPI - General Adult General Chief complaint: Upper Respiratory Infection Stated complaint: SORE THROAT, POSSIBLE TONSIL STONES, NAUSEA Time Seen by Provider: 10/20/24 12:50 Source: patient Mode of arrival: walk-in History of Present Illness HPI narrative: 39-year-old female presents for sore throat. She has had it since yesterday and it hurts more when she swallows. No known ill contacts. She cannot remember the last time she had strep throat. It feels swollen. Related Data Home Medications ?Medication ?Instructions ?Recorded ?Confirmed ferrous sulfate 325 mg (65 mg 325 mg PO BID 06/22/23 0 06/22/23 iron) tablet (FeroSul) Previous Rx's ?Medication ?Instructions ?Recorded ketorolac 10 mg tablet 10 mg PO TID PRN pain #10 ta bs 06/04/24 methocarbamol 750 mg tablet 750 mg PO TID PRN pain #20 tabs 06/04/24 methylprednisolone 4 mg tablets in See Rx Instructions .Route 06/04/24 a dose pack (Medrol (Fede)) .COMPLEX #21 ea Allergies Allergy/AdvReac Type Severity Reaction Status Date / Time No Known Drug Allergies Allergy Verified 11/27/22 11:16 Opioid HPI Opioid Management Most Recent Opioid Data: Last Pain Scale 10 05/18/23, 03:42 Review of Systems ROS Narrative A ten point review of systems is negative except as noted above. PFSH PFSH Social History Little interest or pleasure in doing things: not at all Feeling down, depressed, or hopeless: not at all Exam Narrative Exam Narrative: Nurses note and vital signs reviewed and patient is not hypoxic. General: The patient appears well and in no apparent distress. Patient is resting comfortably on cart. Skin: Warm, dry, no pallor noted. There is no rash noted. Head: Normocephalic, atraumatic Eye: Normal conjunctiva, no drainage Ears, Nose, Mouth, and Throat: oral mucosa is moist. Nares patent. Minimal pharyngeal erythema. No exudate. Uvula midline. She is handling oral secretions well. Cardiovascular: Regular Rate and Rhythm Respiratory: Patient is in no distress, no accessory muscle use, lungs are clear to auscultation, no wheezing, rales or rhonchi Back: non-tender GI: Soft and nontender Musculoskeletal: The patient has no evidence of calf tenderness, no pitting edema, symmetrical pulses noted bilaterally Neurological: A&O, normal speech Psychiatric: Cooperative Constitutional Vital Signs, click to edit/add: Last Vital Signs Temp 97.7 F 10/20/24 12:52 Pulse 93 H 10/20/24 12:52 Resp 18 10/20/24 12:52 BP 106/73 10/20/24 12:52 Pulse Ox 100 10/20/24 12:52 O2 Del Method Room Air 10/20/24 12:52 Course Vital Signs Vital signs: Vital Signs Temperature 97.7 F 10/20/24 12:52 Pulse Rate 93 H 10/20/24 12:52 Respiratory Rate 18 10/20/24 12:52 Blood Pressure 106/73 10/20/24 12:52 Pulse Oximetry 100 10/20/24 12:52 Oxygen Delivery Method Room Air 10/20/24 12:52 Temperature 97.7 F 10/20/24 12:52 Pulse Rate 93 H 10/20/24 12:52 Respiratory Rate 18 10/20/24 12:52 Blood Pressure 106/73 10/20/24 12:52 Pulse Oximetry 100 10/20/24 12:52 Oxygen Delivery Method Room Air 10/20/24 12:52 Medical Decision Making MDM Narrative Medical decision making narrative: Strep test is negative. She was given IM Decadron. Treatment diagnosis and follow-up were discussed with the patient. There is no indication for an antibiotic. There is no evidence of abscess. Differential Diagnosis Differential Diagnosis: Strep throat, viral pharyngitis Lab Data Lab results reviewed: Yes I reviewed the patient's lab results Labs: Lab Results 10/20/24 Range/Units 12:55 Streptococcus Screen Negative Discharge Plan Discharge Chief Complaint: Upper Respiratory Infection Clinical Impression: Viral pharyngitis Patient Disposition: Home, Self-Care Time of Disposition Decision: 13:21 Condition: Good Mode of Transportation: Private Vehicle Prescriptions / Home Meds: No Action ferrous sulfate [FeroSul] 325 mg (65 mg iron) tablet 325 mg PO BID ketorolac 10 mg tablet 10 mg PO TID PRN (Reason: pain) Qty: 10 0RF methocarbamol 750 mg tablet 750 mg PO TID PRN (Reason: pain) Qty: 20 0RF methylprednisolone [Medrol (Fede)] 4 mg tablets,dose pack See Rx Instructions .ROUTE .COMPLEX Qty: 21 0RF Rx Instructions: Taper as directed Print Language: Mongolian Instructions: Pharyngitis (ED) Referrals: Physician,Non-Staff, MD [Primary Care Provider] - 1 week
[2024-10-20 13:16] LABS: Internal Control Within Normal Limits; Strep A Antigen Screen Negative
[2024-10-20] MEDS: DEXAMETHASONE SOD PHOS 10 MG/ML VIAL IM (13:32)
== END 2024-10-20 13:37 | disposition home or self-care (01) ==
PROVIDERS: Emergency Provider Emergency Medicine
DX: J02.9 Acute pharyngitis, unspecified (principal)
CPT/HCPCS: 87070; 87880; 96372; 99284; J1100